=== PATIENT | female | born 1960 | race Caucasian/White ===

== ENCOUNTER → 2016-05-07 | Outpatient (CLI) | payer BC ==
[~2016-05-07] MED LIST: CALTRATE 600 +1 EACH PO; CETI1TAB2 PO; CYCL-97 PO; DESO60OI5 TP; DIAZ2TAB2 PO; DIPH25TA82 PO; FAMO20TA5 PO; FLUR100T PO; IBUP-15 PO; IBUP-30 PO; MULT-963 PO; OMEG1CAP51 PO; OMEP20CA6 PO; PANT40TA2 PO; VITA1CAP59 PO; [UNRECOGNIZED DRUG - CODE] TP
--- OUTSIDE RECORDS SUMMARY | 2016-05-07 10:24 | XMS REPORT | Continuity of Care Document ---
Author Author [facility] Organization [facility] Address Unknown Phone Unavailable Care Team Providers Care Asset Management Lead Name Role Phone Taylor Cabrales PCP [phone] Source Comments Some departments are not documenting in the electronic medical record. If you do not see the information that you expected, contact Release of Information in the Health Information Management department at [phone] for further assistance in locating additional records.[facility] Active Allergies and Adverse Reactions Allergen Noted Date Severity Reactions Comments Augmentin 05/28/2015 Medium HIVES, RASH, ITCHING Ceclor 05/28/2015 Medium CHEST TIGHTNESS, HIVES, Had to have epinephrine ITCHING shot as patient had tightness in chest. Clindamycin 05/28/2015 High HIVES, ITCHING, BLISTERS Severe reaction of itching and hives Penicillins 05/28/2015 Low SEE COMMENTS Was very small and doctor told Mom not to take ever again--she was in hospital at time. Septra 05/28/2015 Low SEE COMMENTS Took 1 pill and lips swelled and tingled. Doctor told her not to take anymore. Tetracycline 05/28/2015 Medium HIVES, RASH, ITCHING Current Medications Prescription Sig. Disp. Refills Start End Date Status Date OMEPRAZOLE (PRILOSEC PO) Take 20 mg by mouth Active daily. Jnsenmravtmxe-Izauooui-Lh Take 1 Tab by mouth Active tein tab daily. WHEAT DEXTRIN/CALCIUM Take by mouth daily. Active NO.15 (BENEFIBER PLUS Indications: 2 tsp bid CALCIUM PO) DOCOSAHEXANOIC ACID/EPA Take 2 Caps by mouth Active (FISH OIL PO) daily. vitamins, B complex tab Take 1 Tab by mouth Active daily. Hydrocortisone 2 % lotn Apply to affected area Active at bedtime daily. BACITRACIN/POLYMYXIN B Apply to affected area Active SULFATE (POLYSPORIN TP) as Needed. Indications: for blemishes hemorrhoidal prep Insert or Apply 1 Active (ANUSOL) 0.25 % rectal Suppository to rectal suppository area as directed as Needed. Indications: Sometimes one time a week clobetasol (TEMOVATE) Apply to affected area Active 0.05 % topical cream at bedtime daily. ibuprofen (MOTRIN) 200 mg Take 400 mg by mouth Active tablet every 6 hours as needed for Pain (Takes for headaches). 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 The penicillins are the only drug that she has had a suspected reaction to, for which there is a standardized, validated, commercially available skin test to be able to evaluate for possible IgE-mediated drug allergy. There are no standardized, validated tests available for any of the other antibiotics she's had reactions to. She is not a candidate for penicillin skin testing, because she reported having a rash with skin peeling in 2003 to either Augmentin or Clindamycin. Skin peeling rashes could be a sign of Brown Vel Syndrome (SJS), which can be a severe, potentially life-threatening, non-IgE mediated/non-allergic reaction to a medication, and strict medication avoidance (including avoiding skin testing) is recommended if there's any suspicion that an individual had Brown Vel Syndrome to a medication. If she is able to find any records from the ENT physician at that time that might document whether or not the skin peeling rash was due to Augmentin, that may be helpful. 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 Unless she is able to find medical records from those reactions that can help further determine which antibiotic caused the rash with skin peeling, we recommend she not take these antibiotics in the future due to possible history of SJS. - We recommend strictly avoiding Tetracycline, and Septra and other sulfa drugs, because she developed hives, chest tightness, and/or lip swelling to those medications (please see HPI for specific details on which antibiotic caused which symptoms), and those symptoms may be consistent with an IgE-mediated allergic reaction, and unfortunately we do not have any standardized, validated, commercially available skin or blood tests that we can do to determine for sure if she has an IgE-mediated allergy to any of those antibiotics. But if in the future, she gets an infection that an Infectious Disease specialist says requires treatment with either Tetracycline or a sulfa antibiotic, then it's possible that she might be a candidate for a desensitization procedure at that time to one of those drugs. - Because she had possibly Brown Vel Syndrome to Duracef, a first generation cephalosporin, our recommendation is for her to also strictly avoid Ceclor, a second generation cephalosporin, and to avoid other cephalosporins as well. - She may continue to take medications that she has not had past reactions to, such as the Avelox, Levaquin, and Zpak. We have no way to predict whether or not she get any future reactions. We asked that if she does get another reaction, to seek medical attention, write down the reaction details, and take pictures of any rash. Social History Tobacco Use Types Packs/Day Years Used Date Current Every Day Smoker Cigarettes 0.5 36 Alcohol Use Drinks/Week oz/Week Comments Yes 0 Standard 0.0 Very seldom has a glass drinks or equivalent Last Filed Vital Signs Vital Sign Reading Time Taken Blood Pressure 121/85 05/28/2015 9:08 AM CDT Pulse 76 05/28/2015 9:08 AM CDT Temperature 36.8 C (98.2 F) 05/28/2015 9:08 AM CDT Respiratory Rate - - Height 1.626 m (5' 4") 05/28/2015 9:08 AM CDT Weight 102.513 kg (226 lb) 05/28/2015 9:08 AM CDT Body Mass Index 38.77 05/28/2015 9:08 AM CDT Oxygen Saturation - - Plan of Care Health Maintenance Due Date Last Done Comments Physical (Comprehensive) 1968 Exam Pertussis Vaccine 1972 Tetanus Vaccine 1978 Cervical Cancer Screening 1982 Breast Cancer Screening 2001 Colorectal Cancer 08/21/2011 Screening Influenza Vaccine 11/12/2015 Results from Last 3 Months Not on file
[2016-05-07 10:56] LABS: ALBUMIN 4.2 G/DL (3.2-4.5); BILIRUBIN,DIRECT 0.2 MG/DL (0.0-0.3); BILIRUBIN,INDIRECT 0.4 MG/DL; BILIRUBIN,TOTAL 0.6 MG/DL (0.1-1.0); TOTAL PROTEIN 6.6 G/DL (6.4-8.2)
== END ==
LOC: LAB 10:20
PROVIDERS: ATTEND Internal Medicine Cardiovascular Disease
DX: E78.2 Mixed hyperlipidemia (principal)
CPT/HCPCS: 36415; 80061; 80076

== ENCOUNTER → 2016-07-27 | Outpatient (CLI) | payer BC ==
--- NOTE | 2016-07-27 16:55 | Diagnostic Imaging Report ---
Bilateral screening mammogram. The current study was also evaluated with a Computer Aided Detection (CAD) system. INDICATION: Screening. No current complaints stated on the questionnaire. COMPARISON: 07/10/15. FINDINGS: The breasts are composed of scattered fibroglandular densities. There are scattered benign-appearing calcifications. Allowing for technique and positional differences, no suspicious change is seen. IMPRESSION: No significant change. ACR BI-RADS Category 2: Benign findings. Result letter will be mailed to the patient. Note: At least 10% of breast cancer is not imaged by mammography. Dictated by: Dictated on workstation # [id number]
== END ==
LOC: RAD 14:48
PROVIDERS: ATTEND Family Medicine
DX: Z12.31 Encounter for screening mammogram for malignant neoplasm of breast (principal)
CPT/HCPCS: 77067

== ENCOUNTER 2016-08-10 08:35 | Outpatient (RCR) | payer BC ==
[2016-07-28] MEDS: ACETAMINOPHEN 325 MG TABLET/CAPLET (TYLENOL) PO SCH (09:40)
[2016-07-28] MEDS: diphenhydrAMINE 50 MG/ML INJ (BENADRYL) IV SCH (09:41)
[2016-07-28] MEDS: IRON SUCROSE 250 MG/NS 100 ML IVPB IV SCH ×2 (10:10)
[2016-07-28 12:21] VITALS: BP 133/70
[2016-08-03] MEDS: ACETAMINOPHEN 325 MG TABLET/CAPLET (TYLENOL) PO SCH (08:54)
[2016-08-03] MEDS: diphenhydrAMINE 50 MG/ML INJ (BENADRYL) IV SCH (08:54)
[2016-08-03] MEDS: IRON SUCROSE 250 MG/NS 100 ML IVPB IV SCH ×2 (09:15)
[2016-08-03 10:00] VITALS: BP 130/81
[~2016-08-10] VITALS: Ht 162.6 cm; Wt 98.0 kg
[2016-08-10] MEDS: diphenhydrAMINE 50 MG/ML INJ (BENADRYL) IV SCH (08:49)
[2016-08-10] MEDS: ACETAMINOPHEN 325 MG TABLET/CAPLET (TYLENOL) PO SCH (08:50)
[2016-08-10] MEDS: IRON SUCROSE 250 MG/NS 100 ML IVPB IV SCH ×2 (08:58)
[2016-08-10 09:30] VITALS: BP 128/75
== END 2016-10-26 | disposition home or self-care (01) ==
LOC: SDC 08:35
PROVIDERS: ATTEND Family Medicine
DX: D50.9 Iron deficiency anemia, unspecified (principal)
CPT/HCPCS: 96365; 96374

== ENCOUNTER → 2016-10-11 | Outpatient (CLI) | payer BC ==
[2016-10-11 11:26] LABS: BILIRUBIN,DIRECT 0.2 MG/DL (0.0-0.3); BILIRUBIN,INDIRECT 0.4 MG/DL; BILIRUBIN,TOTAL 0.6 MG/DL (0.1-1.0); TOTAL PROTEIN 6.6 GM/DL (6.4-8.2)
== END ==
LOC: LAB 10:42
PROVIDERS: ATTEND Physician Assistant
DX: E78.2 Mixed hyperlipidemia (principal)
CPT/HCPCS: 36415; 80061; 80076

== ENCOUNTER → 2017-03-25 | Outpatient (CLI) | payer BC | LOC: LAB 11:11 | PROVIDERS: ATTEND Family Medicine | DX: Z00.00 Encounter for general adult medical examination without abnormal findings (principal); R73.9 Hyperglycemia, unspecified; D64.9 Anemia, unspecified; Z79.899 Other long term (current) drug therapy ==

== ENCOUNTER → 2017-03-25 | Outpatient (CLI) | payer BC ==
[2017-03-25 11:57] LABS: ALANINE AMINOTRANSFERASE 22 U/L (0-55); ALKALINE PHOSPHATASE 103 U/L (40-136); BILIRUBIN,TOTAL 0.5 MG/DL (0.1-1.0); BUN/CREATININE RATIO 14; CALCIUM 9.1 MG/DL (8.5-10.1); CARBON DIOXIDE 26 MMOL/L (21-32); CHLORIDE 105 MMOL/L (98-107); CHOLESTEROL 179 MG/DL (< 200); CREATININE SERUM 0.79 MG/DL (0.60-1.30); GFR ESTIMATED > 60; GLUCOSE 95 MG/DL (70-105); HDL CHOLESTEROL 38 MG/DL (40-60); POTASSIUM 4.2 MMOL/L (3.6-5.0); SODIUM 141 MMOL/L (135-145); TOTAL PROTEIN 6.4 GM/DL (6.4-8.2); TRIGLYCERIDES 152 MG/DL (<150); VLDL CHOLESTEROL 30 MG/DL (5-40)
[2017-03-25 12:18] LABS: FREE T4 (FREE THYROXINE) 0.87 NG/DL (0.70-1.48)
== END ==
LOC: LAB 11:15
PROVIDERS: ATTEND Internal Medicine Gastroenterology
DX: R53.83 Other fatigue (principal); R63.5 Abnormal weight gain
CPT/HCPCS: 36415; 80053; 80061; 82607; 83036; 84439; 84443; 85652

== ENCOUNTER 2017-06-10 11:26 | Emergency (ER) | payer BC ==
[~2017-06-10] VITALS: Ht 162.6 cm; Wt 98.0 kg
[2017-06-10] MEDS ORDERED: LIDOCAINE 2% 20 ML (XYLOCAINE) VIAL ONE (12:44)
[2017-06-10] MEDS ORDERED: RX-MUPIROCIN (BACTROBAN) 2% OINT 22 GM TUBE ONE (12:45)
[2017-06-10] MEDS ORDERED: DOXY100T2 PO (13:12)
--- NOTE | 2017-06-10 13:12 | ED Integumentary General ---
General Chief Complaint: Skin/Wound Problems Stated Complaint: POSS CYST ON INNER THIGH Nursing Triage Note: c/o area on L thigh for a couple weeks. patient reports patient was able to get it to drain a fews days ago and thought it was better, but states it has come back, worse History of Present Illness Date Seen by Provider: Jun 10, 2017 Time Seen by Provider: 12:20 Initial Comments 56-year-old female reports abscess to her left upper medial thigh that has been present for approximately 2 weeks. Intermittently she has been expressing at with relief of her symptoms. Denies any other skin abscesses or history of MRSA. Reports the pain has become significantly worse in this area. She is allergic to multiple antibiotics. Timing/Duration: getting worse Severity: moderate Location: extremities (Left lower) Possible Cause: no cause identified Associated Symptoms: change in skin texture Allergies and Home Medications Allergies Coded Allergies: amoxicillin (Unverified Allergy, Unknown, RASH, 09/30/15) cefaclor (Unverified Allergy, Unknown, RASH/STOMACH UPSET, 09/30/15) clavulanic acid (Unverified Allergy, Unknown, RASH, 09/30/15) clindamycin (Unverified Allergy, Unknown, STOMACH UPSET/NAUSEA/VOMITING, ) sulfamethoxazole (Unverified Allergy, Unknown, RASH, 09/30/15) tetracycline (Unverified Allergy, Unknown, RASH/STOMACH UPSET, 09/30/15) trimethoprim (Unverified Allergy, Unknown, RASH, 09/30/15) Uncoded Allergies: PCN (Allergy, Unknown, RASH/STOMACH UPSET, 09/30/15) Home Medications Doxycycline Hyclate 100 Mg Tablet, 100 MG PO BID Prescribed by: CARLOS BOSS on 06/10/17 1312 Ibuprofen 200 Mg Tablet, 200 MG PO PRN, (Reported) [place]-3 Fatty Acids/Fish Oil 1 Each Capsule, 1 EACH PO BID, (Reported) Pantoprazole Sodium 40 Mg Tablet.dr, 40 MG PO DAILY Prescribed by: JAHAIRA BLANCAS on 09/30/15 1138 Patient Home Medication List Home Medication List Reviewed: Yes Constitutional: no symptoms reported, see HPI Skin: see HPI, lumps (Abscess to left medial thigh) Past Ohhscdu-Ogquui-Muqnzh Hx Patient Social History Alcohol Use: Denies Use Recreational Drug Use: No Recent Foreign Travel: No Contact w/Someone Who Travel: No Recent Infectious Disease Expo: No Surgeries History of Surgeries: Yes (NECK SURGERY, CYST OF BUTTOCK) Respiratory History of Respiratory Disorde: Yes (SLEEP APNEA/CPAP) Cardiovascular History of Cardiac Disorders: No Gastrointestinal History of Gastrointestinal Di: No Musculoskeletal History of Musculoskeletal Dis: Yes Endocrine History of Endocrine Disorders: No Reviewed Nursing Assessment Reviewed/Agree w Nursing PMH: Yes Physical Exam Vital Signs Vital Signs - First Documented 06/10/17 11:47 Temp 98.0 Pulse 80 Resp 18 B/P (MAP) 118/69 (85) Pulse Ox 96 Capillary Refill : Less Than 3 Seconds General Appearance: WD/WN, no apparent distress Cardiovascular: normal peripheral pulses, regular rate, rhythm Respiratory: chest non-tender, lungs clear Gastrointestinal: normal bowel sounds, non tender, soft Extremities: normal range of motion, non-tender, normal inspection, No no pedal edema, No no calf tenderness, normal capillary refill Neurologic/Psychiatric: no motor/sensory deficits, alert, normal mood/affect, oriented x 3 Skin: normal color, warm/dry Skin Problem Location: lower extremities (Left medial thigh) Skin Problem Character: abscess (Approximately 3 x 4 cm area of erythema, moderate to severe tenderness to palpation, marked induration with fluctuance at the proximal area), erythema, swelling, tenderness, warm Lymphatic: no adenopathy I&D : Site: Left upper medial thigh Blade Size: 11 I & D Procedure: betadine prep, sterile dressing applied Progress Using sterile technique the skin was prepped with Betadine, the skin was infiltrated with 8 mls of 2% lidocaine. Satisfactory local anesthesia was obtained, 11 blade was used to open the abscess, immediate return of serosanguineous to purulent drainage was expressed. Cultures were obtained. Approximately 3 ML's total was expressed. The wound was irrigated with 200 ML's of sterile normal saline. Bactroban was applied to the wound site. A bulky sterile dressing was applied. Patient tolerated the procedure well and reported relief of pain. Progress/Results/Core Measures Results/Orders Micro Results Microbiology 06/10/17 Gram Stain - Final, Resulted 06/10/17 Wound Culture - Preliminary, Resulted Strep, Beta Hemolytic Group B See Comments My Orders Orders - CARLOS BOSS Lidocaine 2% Injection 20 Ml (Xylocaine (06/10/17 12:44) Rx-Mupirocin 2% Oint (Rx-Bactroban) (06/10/17 12:45) Wound Culture (06/10/17 16:28) Medications Given in ED Vital Signs/I&O Vital Sign - Last 12Hours 06/10/17 06/10/17 11:47 13:19 Temp 98.0 98.0 Pulse 80 80 Resp 18 18 B/P (MAP) 118/69 (85) 118/69 (85) Pulse Ox 96 96 Blood Pressure Mean: 85 Progress Note : Time: 12:20 Progress Note Initial evaluation completed. Recommended I&D cultures of the abscess. Risks and benefits were discussed at length with the patient. She agreed with this treatment plan. 1300 discharge planning and return precautions discussed with the patient in detail. Due to her multiple antibiotic allergies we discussed alternatives and treatment. She believes she is able to take doxycycline. I encouraged her to follow up with Dr. Ramey in 2-3 days for the culture results and possibly adjusting her antibiotics if needed. Questions answered. Departure Impression Impression: Primary Impression: Abscess Disposition: 01 HOME, SELF-CARE Condition: Stable Departure-Patient Inst. Decision time for Depature: 13:00 Referrals: MAYLIN RAMEY MD (PCP/Family) Primary Care Physician Patient Instructions: MRSA (DC), Abscess Incision and Drainage (DC) Add. Discharge Instructions: Irrigate abscess site with peroxide 3 times a day, apply Bactroban ointment and keep covered. Follow-up with Dr. Ramey in 2-3 days if symptoms are not improving or worsen , and to obtain culture results as antibiotics may need to be adjusted. You may use Tylenol 650 mg alternating with ibuprofen 600 mg every 4 hours for pain or fever. Take antibiotic as prescribed. Return to emergency department if symptoms worsen, fever greater than 101 not relieved by Tylenol or ibuprofen, increased drainage or warmth that wound site or new problems. All discharge instructions reviewed with patient and/or family. Voiced understanding. Scripts Doxycycline Hyclate (Doxycycline Hyclate) 100 Mg Tablet 100 MG PO BID, #20 TAB 0 Refills Prov: CARLOS BOSS 06/10/17 Copy Copies To 1: MAYLIN RAMEY MD, AMY ARNP Jun 10, 2017 13:12
[2017-06-10 13:19] VITALS: BP 118/69
== END 2017-06-10 13:21 | disposition home or self-care (01) ==
LOC: EDUNIT# 11:26 → ER 11:28
DX: L02.416 Cutaneous abscess of left lower limb (principal); G47.30 Sleep apnea, unspecified; Z88.1 Allergy status to other antibiotic agents; Z88.8 Allergy status to other drugs, medicaments and biological substances; Z88.2 Allergy status to sulfonamides; Z88.0 Allergy status to penicillin
CPT/HCPCS: 10160; 87070; 87205

== ENCOUNTER 2017-06-13 14:19 | Outpatient (CLI) | payer BC ==
[~2017-06-13] VITALS: Ht 162.6 cm; Wt 98.0 kg
[~2017-06-13 14:19] MED LIST changes: +DOXY100T2 PO
[2017-06-13] MEDS ORDERED: OMEP40CA36 PO (15:07)
[2017-06-13] MEDS ORDERED: MULT1TAB69 PO (15:07)
[2017-06-13] MEDS ORDERED: OMEG-77 PO (15:07)
[2017-06-13] MEDS ORDERED: VITA1TAB17 PO (15:07)
[2017-06-13] MEDS ORDERED: LIFI1DRO OU (15:07)
[2017-06-13] MEDS ORDERED: CALC-902 PO (15:07)
== END 2017-06-13 15:11 ==
LOC: PREOP 14:19
PROVIDERS: ATTEND Surgery
DX: Z01.818 Encounter for other preprocedural examination (principal); L02.416 Cutaneous abscess of left lower limb

== ENCOUNTER 2017-06-14 13:46 | Day surgery (SDC) | payer BC ==
[~2017-06-14] VITALS: Ht 162.6 cm; Wt 98.0 kg
[~2017-06-14 13:46] MED LIST changes: +CALC-902 PO; +LIFI1DRO OU; +MULT1TAB69 PO; +OMEG-77 PO; +OMEP40CA36 PO; +VITA1TAB17 PO
--- OUTSIDE RECORDS SUMMARY | 2017-06-14 13:49 | XMS REPORT | Clinical Summary ---
Author Author [facility] Organization [facility] Address Unknown Phone Unavailable Care Team Providers Care Typing Bookkeeper Name Role Phone Porsha Powers MD Unavailable Taylor Cabrales MD PCP Source Comments Some departments are not documenting in the electronic medical record. If you do not see the information that you expected, contact Release of Information in the Health Information Management department at [phone] for further assistance in locating additional records.[facility] Allergies Active Allergy Reactions Severity Noted Date Comments Amoxicillin-Pot HIVES, RASH, ITCHING Medium 05/28/2015 Clavulanate Cefaclor CHEST TIGHTNESS, HIVES, Medium 05/28/2015 Had to have epinephrine ITCHING shot as patient had tightness in chest. Clindamycin HIVES, ITCHING, BLISTERS High 05/28/2015 Severe reaction of itching and hives Penicillins SEE COMMENTS Low 05/28/2015 Was very small and doctor told Mom not to take ever again--she was in hospital at time. Sulfamethoxazole-Trimetho SEE COMMENTS Low 05/28/2015 Took 1 pill and lips prim swelled and tingled. Doctor told her not to take anymore. Tetracycline HIVES, RASH, ITCHING Medium 05/28/2015 Current Medications Prescription Sig. Disp. Refills Start End Date Status Date OMEPRAZOLE (PRILOSEC PO) Take 20 mg by mouth Active daily. Bwtcoykdchhyx-Vjqnslwp-Uf Take 1 Tab by mouth Active tein tab daily. WHEAT DEXTRIN/CALCIUM Take by mouth daily. Active NO.15 (BENEFIBER PLUS Indications: 2 tsp bid CALCIUM PO)Indications: 2 tsp bid DOCOSAHEXANOIC ACID/EPA Take 2 Caps by mouth Active (FISH OIL PO) daily. vitamins, B complex tab Take 1 Tab by mouth Active daily. Hydrocortisone 2 % lotn Apply to affected area Active at bedtime daily. BACITRACIN/POLYMYXIN B Apply to affected area Active SULFATE (POLYSPORIN as Needed. Indications: TP)Indications: for for blemishes blemishes hemorrhoidal prep Insert or Apply 1 Active (ANUSOL) 0.25 % rectal Suppository to rectal suppositoryIndications: area as directed as Sometimes one time a week Needed. Indications: Sometimes one time a week [...] seldom has a glass drinks or equivalent Sex Assigned at Date Recorded Not on file Last Filed Vital Signs Vital Sign Reading Time Taken Blood Pressure 121/85 05/28/2015 9:08 AM CDT Pulse 76 05/28/2015 9:08 AM CDT Temperature 36.8 C (98.2 F) 05/28/2015 9:08 AM CDT Respiratory Rate - - Oxygen Saturation - - Inhaled Oxygen - - Concentration Weight 102.5 kg (226 lb) 05/28/2015 9:08 AM CDT Height 162.6 cm (5' 4") 05/28/2015 9:08 AM CDT Body Mass Index 38.79 05/28/2015 9:08 AM CDT Plan of Treatment Health Maintenance Due Date Last Done Comments HEPATITIS C SCREENING 1961 PHYSICAL (COMPREHENSIVE) 1968 EXAM PERTUSSIS VACCINE 1972 HIV SCREENING 1976 TETANUS VACCINE 1978 CERVICAL CANCER SCREENING 08/21/1991 BREAST CANCER SCREENING 2001 COLORECTAL CANCER 08/21/2011 SCREENING INFLUENZA VACCINE 12/11/2017 Results Not on filefrom Last 3 Months
--- OUTSIDE RECORDS SUMMARY | 2017-06-14 13:50 | XMS REPORT ---
Author BARBARA Cisneros Organization [employer] Address Unknown Phone Unavailable Care Team Providers Care Proof Machine Operator Supervisor Name Role Phone BARBARA OSORIO CP Unavailable Allergies No Known Allergies Problems Problem Type Condition Code Onset Dates Condition Status Assessment Encounter for immunization Z23 Active Problem Need for prophylactic vaccination and inoculation, Influenza V04.81 Active Medications No Known Medications Procedures Procedure Coding System Code Date SINGLE IMMUNIZATION ADMIN CPT-4 50516 Dec 18, 2014 FLUARIX QUAD (3 & UP)-GSK-2014 CPT-4 17411 Dec 18, 2014 Results No Known Results Immunizations Vaccine Administration Date FLUARIX QUAD (3 & UP)-GSK-2014Dec 18, 2014 Summary Purpose [employer] Submission
--- OUTSIDE RECORDS SUMMARY | 2017-06-14 13:50 | XMS REPORT | Continuity of Care Document ---
Author Author [facility] Organization [facility] Address Unknown Phone Unavailable Allergies Active Description Code Type Severity Reaction Onset Reported/Identified Relationship to Patient Clinical Status Yes amoxicillin [id number] Drug Allergy Unknown RASH 09/30/2015 Yes cefaclor [id number] Drug Allergy Unknown RASH/STOMACH UP 09/30/2015 Yes clavulanic acid [id number] Drug Allergy Unknown RASH 09/30/2015 Yes clindamycin [id number] Drug Allergy Unknown STOMACH UPSET/N 09/30/2015 Yes PCN PCN Unknown RASH/STOMACH UP 09/30/2015 Yes sulfamethoxazole [id number] Drug Allergy Unknown RASH 09/30/2015 Yes tetracycline [id number] Drug Allergy Unknown RASH/STOMACH UP 09/30/2015 Yes trimethoprim [id number] Drug Allergy Unknown RASH 09/30/2015 Medications There is no data. Problems Date Dx Coded Attending Type Code Diagnosis Diagnosed By 12/05/2012 LUCIAN ONEILL Ot 327.23 OBSTRUCTIVE SLEEP APNEA (ADULT) (PEDIATR 01/07/2013 RAJOTTE DENTAL APPLIANCE REPAIRER, BARBARA A V04.81 FLU SHOT 01/07/2013 RAJOTTE DENTAL APPLIANCE REPAIRER, BARBARA A V04.81 FLU SHOT 09/25/2015 JAHAIRA BLANCAS MD Ot D64.9 ANEMIA, UNSPECIFIED 09/25/2015 JAHAIRA BLANCAS MD Ot K21.9 GASTRO-ESOPHAGEAL REFLUX DISEASE WITHOUT 09/25/2015 JAHAIRA BLANCAS MD Ot Z01.818 ENCOUNTER FOR OTHER PREPROCEDURAL EXAMIN 09/28/2015 JAHAIRA BLANCAS MD Ot D64.9 ANEMIA, UNSPECIFIED 09/28/2015 JAHAIRA BLANCAS MD Ot K21.9 GASTRO-ESOPHAGEAL REFLUX DISEASE WITHOUT 09/28/2015 JAHAIRA BLANCAS MD Ot Z01.818 ENCOUNTER FOR OTHER PREPROCEDURAL EXAMIN 09/30/2015 JAHAIRA BLANCAS MD Ot K21.0 GASTRO-ESOPHAGEAL REFLUX DISEASE WITH ES 09/30/2015 JAHAIRA BLANCAS MD Ot K29.70 GASTRITIS, UNSPECIFIED, WITHOUT BLEEDING 09/30/2015 JAHAIRA BLANCAS MD Ot K44.9 DIAPHRAGMATIC HERNIA WITHOUT OBSTRUCTION 09/30/2015 JAHAIRA BLANCAS MD Ot K52.9 NONINFECTIVE GASTROENTERITIS AND COLITIS 09/30/2015 JAHAIRA BLANCAS MD Ot K64.1 SECOND DEGREE HEMORRHOIDS 10/01/2015 JAHAIRA BLANCAS MD Ot D64.9 ANEMIA, UNSPECIFIED 10/01/2015 JAHAIRA BLANCAS MD Ot K21.9 GASTRO-ESOPHAGEAL REFLUX DISEASE WITHOUT 10/01/2015 JAHAIRA BLANCAS MD Ot Z01.818 ENCOUNTER FOR OTHER PREPROCEDURAL EXAMIN 10/01/2015 JAHAIRA BLANCAS MD Ot K21.0 GASTRO-ESOPHAGEAL REFLUX DISEASE WITH ES 10/01/2015 JAHAIRA BLANCAS MD Ot K29.70 GASTRITIS, UNSPECIFIED, WITHOUT BLEEDING 10/01/2015 JAHAIRA BLANCAS MD Ot K44.9 DIAPHRAGMATIC HERNIA WITHOUT OBSTRUCTION 10/01/2015 JAHAIRA BLANCAS MD Ot K52.9 NONINFECTIVE GASTROENTERITIS AND COLITIS 10/01/2015 JAHAIRA BLANCAS MD Ot K64.1 SECOND DEGREE HEMORRHOIDS 11/11/2015 Ot 397.0 TRICUSPID VALVE DISEASE 11/11/2015 Ot 424.0 MITRAL VALVE DISORDER 11/11/2015 Ot 786.09 RESPIRATORY ABNORM NEC 11/11/2015 Ot 786.50 CHEST PAIN NOS 11/12/2015 DC FREEDMAN MD Ot R00.2 PALPITATIONS 11/12/2015 DC FREEDMAN MD Ot R06.02 SHORTNESS OF BREATH 11/12/2015 DC FREEDMAN MD Ot R07.9 CHEST PAIN, UNSPECIFIED 11/12/2015 DC FREEDMAN MD Ot Z86.79 PERSONAL HISTORY OF OTHER DISEASES OF 12/01/2015 DC FREEDMAN MD Ot R00.2 PALPITATIONS 12/01/2015 DC FREEDMAN MD Ot R06.02 SHORTNESS OF BREATH 12/01/2015 DC FREEDMAN MD Ot R07.9 CHEST PAIN, UNSPECIFIED 12/01/2015 DC FREEDMAN MD Ot Z86.79 PERSONAL HISTORY OF OTHER DISEASES OF 03/12/2016 Ot 397.0 TRICUSPID VALVE DISEASE 03/12/2016 Ot 424.0 MITRAL VALVE DISORDER 03/12/2016 Ot 786.09 RESPIRATORY ABNORM NEC 03/12/2016 Ot 786.50 CHEST PAIN NOS 03/12/2016 DC FREEDMAN MD Ot R00.2 PALPITATIONS 03/12/2016 DC FREEDMAN MD Ot R06.02 SHORTNESS OF BREATH 03/12/2016 DC FREEDMAN MD Ot R07.9 CHEST PAIN, UNSPECIFIED 03/12/2016 DC FREEDMAN MD Ot Z86.79 PERSONAL HISTORY OF OTHER DISEASES OF TH 03/14/2016 CLARISSA RAO DENTAL APPLIANCE REPAIRER Ot D64.9 ANEMIA, UNSPECIFIED 03/14/2016 CLARISSA RAO DENTAL APPLIANCE REPAIRER Ot E61.1 IRON DEFICIENCY 03/23/2016 CLARISSA RAO DENTAL APPLIANCE REPAIRER Ot D64.9 ANEMIA, UNSPECIFIED 03/23/2016 CLARISSA RAO DENTAL APPLIANCE REPAIRER Ot E61.1 IRON DEFICIENCY 05/09/2016 DC FREEDMAN MD Ot E78.2 MIXED HYPERLIPIDEMIA 05/13/2016 DC FREEDMAN MD Ot E78.2 MIXED HYPERLIPIDEMIA 05/18/2016 DC FREEDMAN MD Ot E78.2 MIXED HYPERLIPIDEMIA 08/02/2016 SÁNCHEZ DESAI, MAYLIN Guerra Ot D50.9 IRON DEFICIENCY ANEMIA, UNSPECIFIED 08/03/2016 MAYLIN POZO MD Ot D50.9 IRON DEFICIENCY ANEMIA, UNSPECIFIED 08/03/2016 MAYLIN POZO MD Ot D50.9 IRON DEFICIENCY ANEMIA, UNSPECIFIED 08/10/2016 SÁNCHEZ DESAI, MAYLIN Guerra Ot D50.9 IRON DEFICIENCY ANEMIA, UNSPECIFIED 08/10/2016 MAYLIN POZO MD Ot Z12.31 ENCNTR SCREEN MAMMOGRAM FOR MALIGNANT NE 08/24/2016 SÁNCHEZ DESAI, MAYLIN Guerra Ot D50.9 IRON DEFICIENCY ANEMIA, UNSPECIFIED 10/26/2016 MAYLIN POZO MD Ot D50.9 IRON DEFICIENCY ANEMIA, UNSPECIFIED 11/01/2016 MAYLIN POZO MD Ot D50.9 IRON DEFICIENCY ANEMIA, UNSPECIFIED 11/02/2016 JOSS CHIANG Ot E78.2 MIXED HYPERLIPIDEMIA 03/27/2017 EVAN MENEZES MD Ot R53.83 OTHER FATIGUE 03/27/2017 EVAN MENEZES MD Ot R63.5 ABNORMAL WEIGHT GAIN 04/05/2017 EVAN MENEZES MD Ot R53.83 OTHER FATIGUE 04/05/2017 EVAN MENEZES MD, Ot R63.5 ABNORMAL WEIGHT GAIN Procedures There is no data. Results Test Result Range Complete blood count (CBC) with automated white blood cell (WBC) differential - 03/12/16 10:25 Blood leukocytes automated count (number/volume) 7.6 10*3/uL 4.3-11.0 Blood erythrocytes automated count (number/volume) 4.09 10*6/uL 4.35-5.85 Venous blood hemoglobin measurement (mass/volume) 12.2 g/dL 11.5-16.0 Blood hematocrit (volume fraction) 38 % 35-52 Automated erythrocyte mean corpuscular volume 92 [foz_us] 80-99 Automated erythrocyte mean corpuscular hemoglobin (mass per erythrocyte) 30 pg 25-34 Automated erythrocyte mean corpuscular hemoglobin concentration measurement ( mass/volume) 32 g/dL 32-36 Automated erythrocyte distribution width ratio 13.6 % 10.0-14.5 Automated blood platelet count (count/volume) 306 10*3/uL 130-400 Automated blood platelet mean volume measurement 8.5 [foz_us] 7.4-10.4 Automated blood neutrophils/100 leukocytes 73 % 42-75 Automated blood lymphocytes/100 leukocytes 19 % 12-44 Blood monocytes/100 leukocytes 5 % 0-12 Automated blood eosinophils/100 leukocytes 3 % 0-10 Automated blood basophils/100 leukocytes 0 % 0-10 Blood neutrophils automated count (number/volume) 5.6 10*3 1.8-7.8 Blood lymphocytes automated count (number/volume) 1.4 10*3 1.0-4.0 Blood monocytes automated count (number/volume) 0.4 10*3 0.0-1.0 Automated eosinophil count 0.2 10*3/uL 0.0-0.3 Automated blood basophil count (count/volume) 0.0 10*3/uL 0.0-0.1 Erythrocyte sedimentation rate by westergren method - 03/12/16 10:25 Erythrocyte sedimentation rate by westergren method 22 mm 0-30 Comprehensive metabolic panel - 03/12/16 10:25 Serum or plasma sodium measurement (moles/volume) 142 mmol/L 135-145 Serum or plasma potassium measurement (moles/volume) 4.2 mmol/L 3.6-5.0 Serum or plasma chloride measurement (moles/volume) 108 mmol/L 98-107 Carbon dioxide 24 mmol/L 21-32 Serum or plasma anion gap determination (moles/volume) 10 mmol/L 5-14 Serum or plasma urea nitrogen measurement (mass/volume) 13 mg/dL 7-18 Serum or plasma creatinine measurement (mass/volume) 0.76 mg/dL 0.60-1.30 Serum or plasma urea nitrogen/creatinine mass ratio 17 NRG Serum or plasma creatinine measurement with calculation of estimated glomerular filtration rate > NRG Serum or plasma glucose measurement (mass/volume) 104 mg/dL 70-105 Serum or plasma calcium measurement (mass/volume) 8.9 mg/dL 8.5-10.1 Serum or plasma total bilirubin measurement (mass/volume) 0.4 mg/dL 0.1-1.0 Serum or plasma alkaline phosphatase measurement (enzymatic activity/volume) 89 U/L 40-136 Serum or plasma aspartate aminotransferase measurement (enzymatic activity/ volume) 18 U/L 5-34 Serum or plasma alanine aminotransferase measurement (enzymatic activity/volume ) 19 U/L 0-55 Serum or plasma protein measurement (mass/volume) 6.1 g/dL 6.4-8.2 Serum or plasma albumin measurement (mass/volume) 3.9 g/dL 3.2-4.5 Serum or plasma C reactive protein measurement (mass/volume) - 03/12/16 10:25 Serum or plasma C reactive protein measurement (mass/volume) 1.21 mg /dL 0.00-0.50 IRON TEST - 03/12/16 10:25 Serum or plasma iron measurement (mass/volume) 57 % 35- 180 Liver function panel (serum or plasma alk phos, alb, total and direct bili, total protein, ALT, AST) - 05/07/16 10:28 Serum or plasma total bilirubin measurement (mass/volume) 0.6 mg/dL 0.1-1.0 Serum or plasma alkaline phosphatase measurement (enzymatic activity/volume) 96 U/L 40-136 Serum or plasma aspartate aminotransferase measurement (enzymatic activity/ volume) 21 U/L 5-34 Serum or plasma alanine aminotransferase measurement (enzymatic activity/volume ) 18 U/L 0-55 Serum or plasma protein measurement (mass/volume) 6.6 g/dL 6.4-8.2 Serum or plasma albumin measurement (mass/volume) 4.2 g/dL 3.2-4.5 Bilirubin direct 0.2 mg/dL 0.0-0.3 Serum or plasma indirect bilirubin measurement (mass/volume) 0.4 mg/ dL [facility] Lipid 1996 panel - 05/07/16 10:28 Serum or plasma triglyceride measurement (mass/volume) 145 mg/dL <150 Serum or plasma cholesterol measurement (mass/volume) 183 mg/dL < 200 Serum or plasma cholesterol in HDL measurement (mass/volume) 38 mg/ dL 40-60 Cholesterol in LDL [mass/volume] in serum or plasma by direct assay 125 mg/dL 1-129 Serum or plasma cholesterol in VLDL measurement (mass/volume) 29 mg/ dL 5-40 Erythrocyte sedimentation rate by westergren method - 03/25/17 11:30 Erythrocyte sedimentation rate by westergren method 21 mm 0-30 Comprehensive metabolic panel - 03/25/17 11:30 Serum or plasma sodium measurement (moles/volume) 141 mmol/L 135-145 Serum or plasma potassium measurement (moles/volume) 4.2 mmol/L 3.6-5.0 Serum or plasma chloride measurement (moles/volume) 105 mmol/L 98-107 Carbon dioxide 26 mmol/L 21-32 Serum or plasma anion gap determination (moles/volume) 10 mmol/L 5-14 Serum or plasma urea nitrogen measurement (mass/volume) 11 mg/dL 7-18 Serum or plasma creatinine measurement (mass/volume) 0.79 mg/dL 0.60-1.30 Serum or plasma urea nitrogen/creatinine mass ratio 14 NR Serum or plasma creatinine measurement with calculation of estimated glomerular filtration rate > [facility] Serum or plasma glucose measurement (mass/volume) 95 mg/dL 70-105 Serum or plasma calcium measurement (mass/volume) 9.1 mg/dL 8.5-10.1 Serum or plasma total bilirubin measurement (mass/volume) 0.5 mg/dL 0.1-1.0 Serum or plasma alkaline phosphatase measurement (enzymatic activity/volume) 103 U/L 40-136 Serum or plasma aspartate aminotransferase measurement (enzymatic activity/ volume) 21 U/L 5-34 Serum or plasma alanine aminotransferase measurement (enzymatic activity/volume ) 22 U/L 0-55 Serum or plasma protein measurement (mass/volume) 6.4 g/dL 6.4-8.2 Serum or plasma albumin measurement (mass/volume) 4.0 g/dL 3.2-4.5 Lipid 1996 panel - 03/25/17 11:30 Serum or plasma triglyceride measurement (mass/volume) 152 mg/dL <150 Serum or plasma cholesterol measurement (mass/volume) 179 mg/dL < 200 Serum or plasma cholesterol in HDL measurement (mass/volume) 38 mg/ dL 40-60 Cholesterol in LDL [mass/volume] in serum or plasma by direct assay 118 mg/dL 1-129 Serum or plasma cholesterol in VLDL measurement (mass/volume) 30 mg/ dL 5-40 THYROID STIMULATING HORMONE - 03/25/17 11:30 THYROID STIMULATING HORMONE 1.29 u[iU]/mL 0.35-4.94 Serum or plasma thyroxine (T4) free measurement (mass/volume) - 03/25/17 11:30 Serum or plasma thyroxine (T4) free measurement (mass/volume) 0.87 ng/dL 0.70-1.48 Hemoglobin A1c - 03/25/17 11:30 Hemoglobin A1c 6.2 % 4.5-6.2 Cyanocobalamin measurement - 03/25/17 11:30 Vitamin B12 363 pg/mL 200-1000 Gram stain microscopy - 06/10/17 12:50 GRAM STAIN RESULT FEW GRAM POSITIVE COCCI NRG Bacteria identification in wound by culture - 06/10/17 12:50 Bacteria identification in wound by culture SEE COMMEN NRG QUANTITY OF GROWTH . NRG Encounters ACCT No. Visit Date/Time Discharge Status Pt. Type Provider Facility Loc./Unit Complaint [id number] 03/25/2017 11:15:00 03/25/2017 23:59:59 CLS Outpatient EVAN MENEZES MD [facility] LAB FATIGUE, WT GAIN [id number] 03/25/2017 11:11:00 03/25/2017 23:59:59 CLS Outpatient MAYLIN POZO MD [facility] LAB ANEMIA [id number] 10/27/2016 00:10:00 10/27/2016 23:59:59 CLS Preadmit MAYLIN POZO MD [facility] SDC ANEMIA [id number] 08/10/2016 08:35:00 10/26/2016 00:01:00 DIS Outpatient MAYLIN POZO MD [facility] SD ANEMIA [id number] 10/11/2016 10:42:00 10/11/2016 23:59:59 CLS Outpatient JOSS CHIANG [facility] LAB E78.2 [id number] 07/27/2016 14:48:00 07/27/2016 23:59:59 CLS Outpatient MAYLIN POZO MD [facility] RAD SCREENING Z12.31 [id number] 05/07/2016 10:20:00 05/07/2016 23:59:59 CLS Outpatient DC FREEDMAN MD [facility] LAB HYPERLIPIDEMIA [id number] 03/12/2016 10:10:00 03/12/2016 23:59:59 CLS Outpatient CLARISSA RAO APRN [facility] LAB ANEMIA, LOW IRON, INFLAMMATION [id number] 11/11/2015 07:27:00 11/11/2015 23:59:59 CLS Outpatient DC FREEDMAN MD [facility] CARD CHEST PAIN SYNDROME, HEART PALPITATIONS [id number] 09/30/2015 08:35:00 09/30/2015 13:38:00 DIS Outpatient JAHAIRA BLANCAS MD [facility] ANEMIA,REFLEX [id number] 09/25/2015 05:38:00 09/25/2015 09:38:00 DIS Outpatient JAHAIRA BLANCAS MD [facility] PREOP ANEMIA/REFLEX [id number] 12/04/2012 20:05:00 12/05/2012 05:50:00 DIS Outpatient LUCIAN ONEILL [facility] SLEEP SNORING [id number] 06/11/2017 10:48:00 Document Registration [id number] 06/19/2012 10:24:00 Document Registration [id number] 12/27/2013 14:43:00 12/27/2013 23:59:59 CLS Outpatient BARBARA OSORIO APRN [id number] 01/07/2013 10:02:00 01/07/2013 23:59:59 CLS Outpatient BARBARA OSORIO APRN [id number] 11/24/2016 10:20:39 11/24/2016 23:59:59 CLS Outpatient
[2017-06-14 14:10] VITALS: BP 114/77
[2017-06-14] MEDS ORDERED: LACTATED RINGERS 1,000 ML IV PRN (14:22)
[2017-06-14] MEDS ORDERED: BUP/EPI 0.5% 1:200,000 (SENSORCAINE) 30 ML VIAL ONE (14:29)
[2017-06-14] MEDS ORDERED: ACETAMINOPHEN 325 MG TABLET/CAPLET (TYLENOL) PO PRN (14:30)
[2017-06-14] MEDS ORDERED: HYDROcodone/APAP 5 MG/325 MG (LORTAB) TAB PO ONE (14:30)
[2017-06-14] MEDS ORDERED: SCOPOLAMINE 1.5 MG (TRANSDERM-SCOP) PATCH TD ONE (14:30)
[2017-06-14] MEDS ORDERED: morphine INJ 10 MG/ML 1ML (SYR OR VIAL) IVP PRN ×2 (14:30→15:45)
[2017-06-14] MEDS ORDERED: ONDANSETRON 4 MG/2 ML (SDV) Z0FRAN IVP ONE (14:30)
[2017-06-14] MEDS ORDERED: LEVOFLOXACIN 500 MG/100 ML IV 100 ML IV ONE (14:30)
[2017-06-14] MEDS ORDERED: FAMOTIDINE 20MG/2ML IV (PEPCID) IVP ONE (14:30)
[2017-06-14] MEDS ORDERED: ONDANSETRON 4 MG/2 ML (SDV) Z0FRAN IVP PRN ×2 (14:30→15:45)
--- NOTE | 2017-06-14 14:30 | Progress Note-Pre Operative ---
Pre-Operative Progress Note H&P Reviewed The H&P was reviewed, patient examined and no changes noted. Date Seen by Provider: Jun 14, 2017 Time Seen by Provider: 14:25 Date H&P Reviewed: Jun 14, 2017 Time H&P Reviewed: 14:25 Pre-Operative Diagnosis: left inner thigh abscess JAHAIRA BLANCAS MD Jun 14, 2017 2:30 pm
[2017-06-14] MEDS ORDERED: MIDAZOLAM 2 MG/2 ML (VERSED) VIAL ONE (14:47)
[2017-06-14] MEDS ORDERED: proPOfol 200 MG/20 ML (DIPRIVAN) VIAL IV ONE (14:47)
[2017-06-14] MEDS ORDERED: fentaNYL INJECTION 100 MCG/2 ML AMP ONE (14:47)
[2017-06-14] MEDS ORDERED: LIDOCAINE PF 2% 5 ML (XYLOCAINE) VIAL ONE (14:47)
[2017-06-14] MEDS ORDERED: SEVOFLURANE (ULTANE) 15 ML INHAL SOLN ONE (15:26)
--- NOTE | 2017-06-14 15:39 | Progress Note-Post Operative ---
Post-Operative Progess Note Surgeon (s)/Prefabricated Houses Trimmer (s) Surgeon JAHAIRA BLANCAS MD Prefabricated Houses Trimmer: none Pre-Operative Diagnosis left inner thigh abscess Post-Operative Diagnosis left inner thigh sebaceous cyst(3cm) Procedure & Operative Findings Date of Procedure 06/14/17 Procedure Performed/Findings excision left medical thigh subcutaneous cyst(3cm). Anesthesia Type general LMA Estimated Blood Loss Estimated blood loss (mL): minimal Specimens/Packing Specimens Removed left thigh cyst. JAHAIRA BLANCAS MD Jun 14, 2017 3:39 pm
--- NOTE | 2017-06-14 15:41 | Discharge Inst-Surgical ---
D/C Lap Instructions-MAGALIS Follow Up Appt in 2 weeks Activity as tolerated Regular Diet Symptoms to Report: Fever over 101 degree F, Nausea/Vomiting Infection Signs and Symptoms to report: Increased redness, Foul odor of wound, Increased drainage Bathing instructions: May shower Operative Area Clean/Dry; Keep incision clean/dry If any problems/questions: Contact your physician or go to Emergency Room JAHAIRA BLANCAS MD Jun 14, 2017 3:41 pm
--- NOTE | 2017-06-14 15:44 | Anesthesia-General Post-Op ---
General Patient Condition Mental Status/LOC: Same as Preop Cardiovascular: Satisfactory Nausea/Vomiting: Absent Respiratory: Satisfactory Pain: Controlled Complications: Absent Post Op Complications Complications None Follow Up Care/Instructions Patient Instructions None needed. Anesthesia/Patient Condition Patient Condition Patient is doing well, no complaints, stable vital signs, no apparent adverse anesthesia problems. No complications reported per nursing. CHRISTIANO WHITLOCK CRNA Jun 14, 2017 15:44
[2017-06-14] MEDS ORDERED: MEPERIDINE (DEMEROL) INJ 50 MG/ML IVP PRN (15:45)
[2017-06-14 16:25] VITALS: BP 114/77
[2017-06-14 16:55] VITALS: BP 119/74
[2017-06-14 17:25] VITALS: BP 109/77
[2017-06-14 17:35] VITALS: BP 109/77
--- NOTE | 2017-06-14 20:30 | OPERATIVE REPORT ---
DATE OF SERVICE: 06/14/2017 ATTENDING PRIMARY CARE PHYSICIAN: Mirian Ramey MD PREOPERATIVE DIAGNOSIS: Symptomatic left inner thigh lesion. POSTOPERATIVE DIAGNOSIS: Symptomatic left inner thigh sebaceous cyst. PROCEDURE: Excision of subcutaneous sebaceous cyst approximately 3 cm in size. SURGEON: Jahaira Blancas MD SERVICE TECHNICIAN COPIER: Jevon Campos APRN ANESTHESIA: General laryngeal mask airway. ESTIMATED BLOOD LOSS: Minimal. FINDINGS: Sebaceous cyst approximately 3 cm in size with no active or surrounding inflammation or infection. DISPOSITION: The patient tolerated the procedure well. INDICATIONS: The patient is a 56-year-old female who reports that she has had recurring issues with a lesion at the left upper medial thigh. She reports that this has been around for some time; however, she has done simple I and D's in the past on her own and they would resolve. She reports in the past several weeks that she has had re-irritation of the area, which grew larger in size and became painful with surrounding redness, erythema. She presented to the Emergency Department where incision and drainage was performed as well as antibiotics. Since that time, the erythema, redness and inflammation have decreased; however, a palpable lesion is still present. The patient has opted for a general anesthesia for proper exploration as well as cyst excision if one is identified. DESCRIPTION OF PROCEDURE: The patient was brought to the operating room, laid supine on the table. After adequate IV pain and sedative medications, general laryngeal mask airway intubation, the thigh and perineum were prepped and draped in standard surgical fashion. Marcaine 0.5% with epinephrine was then used to anesthetize the overlying skin along the lesion. A transverse skin incision was then made using a 15 blade. A cyst cavity was identified and completely dissected out until a clean subcutaneous fat was identified using 15 blade. Good hemostasis was achieved using electrocautery and the wound edges were clean with no signs of infection and reapproximated using 4-0 nylon interrupted sutures. The wound was then cleaned and covered with dry sterile dressing. The patient tolerated the procedure well. We will start IV and oral pain medication as well as a clear liquid diet. When she is tolerating clears, has good pain control with oral pain medications and ambulating well, we will discharge her home. We will have her follow up in approximately 2 weeks to reevaluate the wound as well as to remove the sutures as well. Job ID: [id number] DocumentID: [id number] Dictated Date: 06/14/2017 15:45:17 Carbon Paste Mixer Operator Date: 06/14/2017 20:29:46 Dictated By: JAHAIRA BLANCAS MD MTDD
== END 2017-06-14 17:35 | disposition home or self-care (01) ==
LOC: SDC 13:46
PROVIDERS: ATTEND Surgery
DX: L72.3 Sebaceous cyst (principal); Z11.2 Encounter for screening for other bacterial diseases; K21.9 Gastro-esophageal reflux disease without esophagitis; K59.00 Constipation, unspecified; Z88.2 Allergy status to sulfonamides; Z88.0 Allergy status to penicillin; Z88.1 Allergy status to other antibiotic agents; Z88.5 Allergy status to narcotic agent; F17.210 Nicotine dependence, cigarettes, uncomplicated; G47.33 Obstructive sleep apnea (adult) (pediatric)
CPT/HCPCS: 87081

== ENCOUNTER → 2017-08-01 | Outpatient (CLI) | payer BC ==
--- NOTE | 2017-08-01 19:05 | Diagnostic Imaging Report ---
INDICATION: Routine screening. Comparison is made with prior mammogram from 07/27/2016 and 07/10/2015. 2-D and 3-D bilateral screening mammography was performed with CAD. The current study was also evaluated with a Computer Aided Detection (CAD) system. FINDINGS: Scattered fibronodular densities are identified bilaterally. No mass or malignant-appearing microcalcifications are seen. The axillae are unremarkable. IMPRESSION: No mammographic features suspicious for malignancy are identified. ACR BI-RADS Category 1: Negative. Result letter will be mailed to the patient. Note: At least 10% of breast cancer is not imaged by mammography. Dictated by: Dictated on workstation # [id number]
== END ==
LOC: RAD 08:00
PROVIDERS: ATTEND Nurse Practitioner Family
DX: Z12.31 Encounter for screening mammogram for malignant neoplasm of breast (principal)
CPT/HCPCS: 77067

== ENCOUNTER → 2017-08-24 | Outpatient (REF) ==
--- NOTE | 2017-08-24 15:10 | Diagnostic Imaging Report ---
INDICATION: Injury to left foot. EXAMINATION: AP, oblique and lateral views of the left foot were obtained. FINDINGS: No fracture or acute bony abnormality is seen. Joint spaces are unremarkable. IMPRESSION: Negative left foot. Dictated by: Dictated on workstation # [id number]
== END | disposition home or self-care (01) ==
LOC: OCC 14:07
PROVIDERS: ATTEND Nurse Practitioner Family
CPT/HCPCS: 73630

== ENCOUNTER → 2017-10-21 | Outpatient (CLI) | payer BC ==
[2017-10-21 11:36] LABS: ALANINE AMINOTRANSFERASE 29 U/L (0-55); ALBUMIN 4.3 GM/DL (3.2-4.5); ALKALINE PHOSPHATASE 108 U/L (40-136); BILIRUBIN,TOTAL 0.7 MG/DL (0.1-1.0); BUN/CREATININE RATIO 16; CALCIUM 9.5 MG/DL (8.5-10.1); CARBON DIOXIDE 26 MMOL/L (21-32); CHLORIDE 105 MMOL/L (98-107); CHOLESTEROL 193 MG/DL (< 200); CREATININE SERUM 0.82 MG/DL (0.60-1.30); GFR ESTIMATED > 60; GLUCOSE 101 MG/DL (70-105); HDL CHOLESTEROL 42 MG/DL (40-60); POTASSIUM 4.2 MMOL/L (3.6-5.0); SODIUM 140 MMOL/L (135-145); TOTAL PROTEIN 6.8 GM/DL (6.4-8.2); TRIGLYCERIDES 158 MG/DL (<150); VLDL CHOLESTEROL 32 MG/DL (5-40)
== END ==
LOC: LAB 10:57
PROVIDERS: ATTEND Internal Medicine Cardiovascular Disease
DX: K21.9 Gastro-esophageal reflux disease without esophagitis (principal); R00.2 Palpitations; E78.2 Mixed hyperlipidemia; R06.02 Shortness of breath; Z86.79 Personal history of other diseases of the circulatory system
CPT/HCPCS: 36415; 80053; 80061

== ENCOUNTER 2017-11-18 11:00 | Day surgery (SDC) | payer BC ==
[~2017-11-18] VITALS: Ht 162.6 cm; Wt 99.8 kg
--- OUTSIDE RECORDS SUMMARY | 2017-11-18 11:05 | XMS REPORT | Continuity of Care Document ---
Author Author [facility] Organization [facility] Address Unknown Phone Unavailable Care Team Providers Care Admitted Attorneys Name Role Phone NAIMA SERRATO MD PP Insurance Providers Payer Name Policy Number Subscriber Name Relationship [facility] [id number] Prisca Delaney Jose 02 Advance Directives Directive Response Recorded Date Advance Directives N 06/19/12 1:08pm Organ Donor Y 06/19/12 1:08pm Problems No Known Problems or Medical conditions. Allergies, Adverse Reactions, Alerts No known allergies Medications Medication Dose Units Route Sig Qty Days Desonide 60 Gm TP PRN Dapsone (Aczone) 0 TP BID Omeprazole (Prilosec) 20 Mg PO DAILY Diphenhydramine HCl (Diphenhydramine 25 Mg) 1 Each PO HS PRN Cetirizine HCl (Zyrtec-D Tablet) 1 Each PO Q12HR Ibuprofen (Ibuprofen M) 200 Mg PO PRN Ibuprofen (Advil) 200 Mg PO PRN Diazepam (Diazepam 2 Mg) 1 Each PO PRN Cyclobenzaprine HCl (Flexeril) 1 Tab PO TID PRN Flurbiprofen (Ansaid) 100 Mg PO DAILY Calcium Carbonate/Vitamin D3 (Caltrate 600 + D Chewable Tab) 1 Each PO Vitamin B Complex (B Complex) 1 Cap PO Multivitamin (Multi-Vitamin Daily) 1 Each PO [place]-3 Fatty Acids/Fish Oil (Fish Oil 1,000 Mg Softgel) 1 Each PO BID Famotidine (Pepcid) 1 Each PO DAILY Response Recorded Date/Time Status not known Unknown Results No Known Relevant Diagnostic Tests, Laboratory Data and/or Discharge Summary.
--- OUTSIDE RECORDS SUMMARY | 2017-11-18 11:05 | XMS REPORT | Clinical Summary ---
Author Author [facility] Organization [facility] Address Unknown Phone Unavailable Care Team Providers Care Automotive Product Specialist Name Role Phone Porsha Powers MD Unavailable Taylor Cabrales MD PCP Source Comments Some departments are not documenting in the electronic medical record. If you do not see the information that you expected, contact Release of Information in the Health Information Management department at [phone] for further assistance in locating additional records.[facility] Allergies Active Allergy Reactions Severity Noted [...] Take 20 mg by mouth Active daily. Cliogxfrrjmbm-Vlnumaum-Ex Take 1 Tab by mouth Active tein [...] CANCER SCREENING 2001 COLORECTAL CANCER 08/21/2011 SCREENING SHINGLES RECOMBINANT 08/21/2011 VACCINE (1 of 2) INFLUENZA VACCINE 12/11/2017 Results Not on filefrom Last 3 Months
--- OUTSIDE RECORDS SUMMARY | 2017-11-18 11:06 | XMS REPORT | Continuity of Care Document ---
Author Author [facility] [place] Address Unknown Phone Unavailable Allergies Active Description Code Type Severity Reaction Onset Reported/Identified Relationship to Patient Clinical Status Yes amoxicillin [id number] Drug Allergy Unknown RASH 09/30/2015 Yes cefaclor [id number] Drug Allergy Unknown RASH/STOMACH UP 09/30/2015 Yes clavulanic acid [id number] Drug Allergy Unknown RASH 09/30/2015 Yes clindamycin [id number] Drug Allergy Unknown STOMACH UPSET/N 09/30/2015 Yes PCN PCN Unknown RASH/STOMACH UP 09/30/2015 Yes sulfamethoxazole [id number] Drug Allergy Unknown RASH 09/30/2015 Yes tetracycline [id number] Drug Allergy Unknown RASH/STOMACH UP 09/30/2015 Yes trimethoprim [id number] Drug Allergy Unknown RASH 09/30/2015 Medications There is no data. Problems Date Dx Coded Attending Type Code Diagnosis Diagnosed By 12/05/2012 LUCIAN ONEILL Ot 327.23 OBSTRUCTIVE SLEEP APNEA (ADULT) (PEDIATR 01/07/2013 RAJOTTE RACE CAR MECHANIC, BARBARA A V04.81 FLU SHOT 01/07/2013 RAJOTTE RACE CAR MECHANIC, BARBARA A V04.81 FLU SHOT 09/25/2015 JAHAIRA [...] OTHER DISEASES OF TH 03/14/2016 CLARISSA RAO RACE CAR MECHANIC Ot D64.9 ANEMIA, UNSPECIFIED 03/14/2016 CLARISSA RAO RACE CAR MECHANIC Ot E61.1 IRON DEFICIENCY 03/23/2016 CLARISSA RAO RACE CAR MECHANIC Ot D64.9 ANEMIA, UNSPECIFIED 03/23/2016 CLARISSA RAO RACE CAR MECHANIC Ot E61.1 IRON DEFICIENCY 05/09/2016 DC FREEDMAN [...] R53.83 OTHER FATIGUE 03/27/2017 EVAN MENEZES MD A Ot R63.5 ABNORMAL WEIGHT GAIN 04/05/2017 EVAN MENEZES MD Ot R53.83 OTHER FATIGUE 04/05/2017 CLIF DESAI, EVAN Guerra Ot R63.5 ABNORMAL WEIGHT GAIN 06/10/2017 GERA, CARLOS SENIOR PRODUCTION MANAGER Ot G47.30 SLEEP APNEA, UNSPECIFIED 06/10/2017 GERA, CARLOS SENIOR PRODUCTION MANAGER Ot L02.416 CUTANEOUS ABSCESS OF LEFT LOWER LIMB 06/10/2017 GERA, CARLOS SENIOR PRODUCTION MANAGER Ot Z88.0 ALLERGY STATUS TO PENICILLIN 06/10/2017 GERA, CARLOS SENIOR PRODUCTION MANAGER Ot Z88.1 ALLERGY STATUS TO OTHER ANTIBIOTIC AGENT 06/10/2017 GERA, CARLOS SENIOR PRODUCTION MANAGER Ot Z88.2 ALLERGY STATUS TO SULFONAMIDES STATUS 06/10/2017 GERA, CARLOS SENIOR PRODUCTION MANAGER Ot Z88.8 ALLERGY STATUS TO OTH DRUG/MEDS/BIOL SUB 06/12/2017 GERA, CARLOS SENIOR PRODUCTION MANAGER Ot G47.30 SLEEP APNEA, UNSPECIFIED 06/12/2017 GERA, CARLOS SENIOR PRODUCTION MANAGER Ot L02.416 CUTANEOUS ABSCESS OF LEFT LOWER LIMB 06/12/2017 GERA, CARLOS SENIOR PRODUCTION MANAGER Ot Z88.0 ALLERGY STATUS TO PENICILLIN 06/12/2017 GERA, CARLOS SENIOR PRODUCTION MANAGER Ot Z88.1 ALLERGY STATUS TO OTHER ANTIBIOTIC AGENT 06/12/2017 GERA, CARLOS SENIOR PRODUCTION MANAGER Ot Z88.2 ALLERGY STATUS TO SULFONAMIDES STATUS 06/12/2017 GERA, CARLOS SENIOR PRODUCTION MANAGER Ot Z88.8 ALLERGY STATUS TO OTH DRUG/MEDS/BIOL SUB 06/14/2017 JAHAIRA BLANCAS MD Ot F17.210 NICOTINE DEPENDENCE, CIGARETTES, UNCOMPL 06/14/2017 JAHAIRA BLANCAS MD Ot G47.33 OBSTRUCTIVE SLEEP APNEA (ADULT) (PEDIATR 06/14/2017 JAHAIRA BLANCAS MD Ot K21.9 GASTRO-ESOPHAGEAL REFLUX DISEASE WITHOUT 06/14/2017 JAHAIRA BLANCAS MD, Ot K59.00 CONSTIPATION, UNSPECIFIED 06/14/2017 JAHAIRA BLANCAS MD Ot L72.3 SEBACEOUS CYST 06/14/2017 JAHAIRA BLANCAS MD Ot Z11.2 ENCOUNTER FOR SCREENING FOR OTHER BACTER 06/14/2017 JAHAIRA BLANCAS MD Ot Z88.0 ALLERGY STATUS TO PENICILLIN 06/14/2017 JAHAIRA BLANCAS MD Ot Z88.1 ALLERGY STATUS TO OTHER ANTIBIOTIC AGENT 06/14/2017 JAHAIRA BLANCAS MD Ot Z88.2 ALLERGY STATUS TO SULFONAMIDES STATUS 06/14/2017 JAHAIRA BLANCAS MD, Ot Z88.5 ALLERGY STATUS TO NARCOTIC AGENT STATUS 06/14/2017 JAHAIRA BLANCAS MD, Ot L02.416 CUTANEOUS ABSCESS OF LEFT LOWER LIMB 06/14/2017 JAHAIRA BLANCAS MD, Ot Z01.818 ENCOUNTER FOR OTHER PREPROCEDURAL EXAMIN 06/15/2017 JAHAIRA BLANCAS MD, Ot F17.210 NICOTINE DEPENDENCE, CIGARETTES, UNCOMPL 06/15/2017 JAHAIRA BLANCAS MD, Ot G47.33 OBSTRUCTIVE SLEEP APNEA (ADULT) (PEDIATR 06/15/2017 JAHAIRA BLANCAS MD, Ot K21.9 GASTRO-ESOPHAGEAL REFLUX DISEASE WITHOUT 06/15/2017 JAHAIRA BLANCAS MD, Ot K59.00 CONSTIPATION, UNSPECIFIED 06/15/2017 JAHAIRA BLANCAS MD, Ot L72.3 SEBACEOUS CYST 06/15/2017 JAHAIRA BLANCAS MD, Ot Z11.2 ENCOUNTER FOR SCREENING FOR OTHER BACTER 06/15/2017 JAHAIRA BLANCAS MD, Ot Z88.0 ALLERGY STATUS TO PENICILLIN 06/15/2017 JAHAIRA BLANCAS MD, Ot Z88.1 ALLERGY STATUS TO OTHER ANTIBIOTIC AGENT 06/15/2017 JAHAIRA BLANCAS MD, Ot Z88.2 ALLERGY STATUS TO SULFONAMIDES STATUS 06/15/2017 JAHAIRA BLANCAS MD, Ot Z88.5 ALLERGY STATUS TO NARCOTIC AGENT STATUS 08/02/2017 FLORECITA INTERIANO Ot Z12.31 ENCNTR SCREEN MAMMOGRAM FOR MALIGNANT NE 08/02/2017 FLORECITA INTERIANO Ot Z12.31 ENCNTR SCREEN MAMMOGRAM FOR MALIGNANT NE 08/14/2017 FLORECITA INTERIANO Ot Z12.31 ENCNTR SCREEN MAMMOGRAM FOR MALIGNANT NE Procedures There is no data. Results Test [...] indirect bilirubin measurement (mass/volume) 0.4 mg/ dL [facility] Lipid 1996 panel - 05/07/16 10:28 [...] or plasma urea nitrogen/creatinine mass ratio 14 NRG Serum or plasma creatinine measurement with calculation of estimated glomerular filtration rate > NRG Serum or plasma glucose measurement (mass/volume) 95 [...] COMMEN NRG QUANTITY OF GROWTH . NRG Methicillin resistant Staphylococcus aureus (MRSA) screening culture - 14:05 Methicillin resistant Staphylococcus aureus (MRSA) screening culture NEG NRG Encounters ACCT No. Visit Date/Time Discharge Status Pt. Type Provider Facility Loc./Unit Complaint [id number] 12/27/2013 14:43:00 12/27/2013 23:59:59 CLS Outpatient BARBARA OSORIO APRN [id number] 01/07/2013 10:02:00 01/07/2013 23:59:59 CLS Outpatient BARBARA OSORIO APRN [id number] 11/24/2016 10:20:39 11/24/2016 23:59:59 CLS Outpatient [id number] 08/24/2017 14:07:00 08/24/2017 23:59:59 CLS Outpatient BARBARA JULIAN [facility] OCC INJURED LEFT FOOT [id number] 08/01/2017 08:00:00 08/01/2017 23:59:59 CLS Outpatient FLORECITA INTERIANO [facility] RAD SCREENING [id number] 06/14/2017 13:46:00 06/14/2017 17:35:00 DIS Outpatient JAHAIRA BLANCAS MD [facility] SDC LEFT INNER THIGH ABSCESS [id number] 06/13/2017 14:19:00 06/13/2017 15:11:00 DIS Outpatient JAHAIRA BLANCAS MD [facility] PREOP LEFT INNER THIGH ABSCESS [id number] 06/10/2017 11:28:00 06/10/2017 13:21:00 DIS Emergency CARLOS BOSS [facility] ER POSS CYST ON INNER THIGH [id number] 03/25/2017 11:15:00 03/25/2017 23:59:59 CLS Outpatient EVAN MENEZES MD [facility] LAB FATIGUE, WT GAIN [id number] 03/25/2017 11:11:00 03/25/2017 23:59:59 CLS Outpatient MAYLIN POZO MD [facility] LAB ANEMIA [id number] 10/27/2016 00:10:00 10/27/2016 23:59:59 CLS Preadmit MAYLIN POZO MD [facility] ANEMIA [id number] 08/10/2016 08:35:00 10/26/2016 00:01:00 DIS Outpatient MAYLIN POZO MD [facility] ANEMIA [id number] 10/11/2016 10:42:00 10/11/2016 23:59:59 CLS Outpatient JOSS CHIANG [facility] LAB E78.2 [id number] 07/27/2016 14:48:00 07/27/2016 23:59:59 CLS Outpatient MAYLIN POZO MD [facility] RAD SCREENING Z12.31 [id number] 05/07/2016 10:20:00 05/07/2016 23:59:59 CLS Outpatient DC FREEDMAN MD [facility] LAB HYPERLIPIDEMIA [id number] 03/12/2016 10:10:00 03/12/2016 23:59:59 CLS Outpatient CLARISSA RAO APRN [facility] LAB ANEMIA, LOW IRON, INFLAMMATION [id number] 11/11/2015 07:27:00 11/11/2015 23:59:59 CLS Outpatient DC FREEDMAN MD [facility] CARD CHEST PAIN SYNDROME, HEART PALPITATIONS [id number] 09/30/2015 08:35:00 09/30/2015 13:38:00 DIS Outpatient JAHAIRA BLANCAS MD [facility] SDC ANEMIA,REFLEX [id number] 09/25/2015 05:38:00 09/25/2015 09:38:00 DIS Outpatient JAHAIRA BLANCAS MD [facility] PREOP ANEMIA/REFLEX [id number] 12/04/2012 20:05:00 12/05/2012 05:50:00 DIS Outpatient LUCIAN ONEILL [facility] SLEEP SNORING [id number] 06/19/2012 10:24:00 Document Registration
[2017-11-18] MEDS ORDERED: ONDANSETRON 4 MG/2 ML (SDV) Z0FRAN ONE ×2 (11:17→14:32)
[2017-11-18] MEDS ORDERED: fentaNYL INJECTION 100 MCG/2 ML AMP ONE ×2 (11:17→13:55)
[2017-11-18 11:23] LABS: BASOPHILS % (AUTO) 0 % (0-10); EOSINOPHILS # (AUTO) 0.1 10^3/uL (0.0-0.3); EOSINOPHILS % (AUTO) 0 % (0-10); HEMATOCRIT 39 % (35-52); LYMPHOCYTES # (AUTO) 0.9 X 10^3 (1.0-4.0); LYMPHOCYTES % (AUTO) 6 % (12-44); MEAN CORPUSCULAR HEMOGLOBIN 31 PG (25-34); MEAN CORPUSCULAR HGB CONC 34 G/DL (32-36); MEAN CORPUSCULAR VOLUME 94 FL (80-99); MEAN PLATELET VOLUME 8.2 FL (7.4-10.4); MONOCYTES # (AUTO) 0.7 X 10^3 (0.0-1.0); MONOCYTES % (AUTO) 4 % (0-12); NEUTROPHILS # (AUTO) 15.2 X 10^3 (1.8-7.8); NEUTROPHILS % (AUTO) 90 % (42-75); PLATELET COUNT 292 10^3/uL (130-400); RED BLOOD COUNT 4.14 10^6/uL (4.35-5.85); RED CELL DISTRIBUTION WIDTH 13.5 % (10.0-14.5); WHITE BLOOD COUNT 16.9 10^3/uL (4.3-11.0)
[2017-11-18] MEDS ORDERED: ONDANSETRON 4 MG/2 ML (SDV) Z0FRAN IVP ONE ×2 (11:30→12:15)
[2017-11-18] MEDS ORDERED: fentaNYL INJECTION 100 MCG/2 ML AMP IVP ONE ×4 (11:30→14:30)
[2017-11-18 11:34] LABS: BILIRUBIN,URINE NEGATIVE (NEGATIVE); CLARITY,URINE CLEAR; COLOR,URINE YELLOW; GLUCOSE, URINE (UA) NEGATIVE (NEGATIVE); KETONES,URINE NEGATIVE (NEGATIVE); LEUKOCYTE ESTERASE ,URINE NEGATIVE (NEGATIVE); NITRITE,URINE NEGATIVE (NEGATIVE); PH,URINE 7 (5-9); PROTEIN,URINE NEGATIVE (NEGATIVE); UROBILINOGEN,URINE NORMAL (NORMAL)
[2017-11-18 11:39] LABS: BAND NEUTROPHILS 0 %; BASOPHILS % (MANUAL) 0 %; EOSINOPHILS % (MANUAL) 1 %; LYMPHOCYTES % (MANUAL) 5 %; MONOCYTES % (MANUAL) 7 %; NEUTROPHILS % (MANUAL) 87 %; RBC MORPH NORMAL
--- NOTE | 2017-11-18 11:41 | ED Abdominal Pain ---
General Chief Complaint: Abdominal/GI Problems Stated Complaint: R SIDE ABD PAIN,STARTED TODAY Source of Information: Patient Exam Limitations: No Limitations History of Present Illness Date Seen by Provider: Nov 18, 2017 Time Seen by Provider: 11:39 Initial Comments Patient is a 57-year-old female who presents to the emergency room with complaints of right lower quadrant abdominal pain. She reports that yesterday she had 1 episode of diarrhea after eating [place] food and some mild abdominal pain that she thought was gas yesterday but this morning she woke up with severe right lower quadrant abdominal pain and nausea. She states that it hurts to walk, every bump that we hit on the right here caused her pain in her right lower quadrant. Timing/Duration: 4-6 Hours Severity/Quality: Moderate, Sharp Location: RLQ Radiation: No Radiation Activities at Onset: None Associated Symptoms: Nausea/Vomiting Allergies and Home Medications Allergies Coded Allergies: amoxicillin (Unverified Allergy, Unknown, RASH, 09/30/15) cefaclor (Unverified Allergy, Unknown, RASH/STOMACH UPSET, 09/30/15) clavulanic acid (Unverified Allergy, Unknown, RASH, 09/30/15) clindamycin (Unverified Allergy, Unknown, STOMACH UPSET/NAUSEA/VOMITING, ) sulfamethoxazole (Unverified Allergy, Unknown, RASH, 09/30/15) tetracycline (Unverified Allergy, Unknown, RASH/STOMACH UPSET, 09/30/15) trimethoprim (Unverified Allergy, Unknown, RASH, 09/30/15) Uncoded Allergies: PCN (Allergy, Unknown, RASH/STOMACH UPSET, 09/30/15) Home Medications Hydrocodone Bit/Acetaminophen 1 Tab Tab, 1-2 TAB PO 4-6HR PRN for PAIN Prescribed by: SELENE PIERRE on 11/18/17 1451 Lifite[employer] 1 Each Droperette, 1 DROP OU BID, (Reported) Omeprazole 40 Mg Capsule.dr, 40 MG PO DAILY, (Reported) Patient Home Medication List Home Medication List Reviewed: Yes Review of Systems Review of Systems Constitutional: see HPI; No chills, No fever Gastrointestinal: See HPI, Abdominal Pain, Diarrhea, Nausea Past Vpqcecl-Zbspia-Hfzdzt Hx Past Med/Social Hx: Reviewed Nursing Past Med/Soc Hx Patient Social History Type Used: Cigarettes Recent Foreign Travel: No Contact w/Someone Who Travel: No Recent Hopitalizations: No Seasonal Allergies Seasonal Allergies: Yes (mild) Past Medical History Surgeries: Yes (NECK SURGERY, CYST OF BUTTOCK) Gallbladder, Tonsillectomy Respiratory: Yes (SLEEP APNEA/CPAP) Sleep Apnea Currently Using CPAP: Yes Cardiac: No Gastrointestinal: No Chronic Constipation Musculoskeletal: Yes Degenerate Disk Disease, Arthritis Endocrine: No Sleep Difficulties Family Medical History Reviewed Nursing Family Hx Physical Exam Vital Signs Vital Signs - First Documented 11/18/17 11:05 Temp 98.8 Pulse 77 Resp 20 B/P (MAP) 112/69 (83) Pulse Ox 98 Capillary Refill : Height/Weight/BMI Height: 5'4.00" Weight: 216lbs. 0.0oz. 97.062557my; 37.1 BMI Method:Stated General Appearance: WD/WN, mild distress Respiratory: chest non-tender, lungs clear, normal breath sounds, no respiratory distress, no accessory muscle use Cardiovascular: regular rate, rhythm, no edema, no gallop, no JVD, no murmur Gastrointestinal: normal bowel sounds, soft, no organomegaly, no pulsatile mass , tenderness (sever rlq tenderness) Progress/Results/Core Measures Results/Orders Lab Results Laboratory Tests Test 11/18/17 11:15 11/18/17 11:20 Range/Units White Blood Count 16.9 H 4.3-11.0 10^3/uL Red Blood Count 4.14 L 4.35-5.85 10^6/uL Hemoglobin 13.0 11.5-16.0 G/DL Hematocrit 39 35-52 % Mean Corpuscular Volume 94 80-99 FL Mean Corpuscular Hemoglobin 31 25-34 PG Mean Corpuscular Hemoglobin Concent 34 32-36 G/DL Red Cell Distribution Width 13.5 10.0-14.5 % Platelet Count 292 130-400 10^3/uL Mean Platelet Volume 8.2 7.4-10.4 FL Neutrophils (%) (Auto) 90 H 42-75 % Lymphocytes (%) (Auto) 6 L 12-44 % Monocytes (%) (Auto) 4 0-12 % Eosinophils (%) (Auto) 0 0-10 % Basophils (%) (Auto) 0 0-10 % Neutrophils # (Auto) 15.2 H 1.8-7.8 X 10^3 Lymphocytes # (Auto) 0.9 L 1.0-4.0 X 10^3 Monocytes # (Auto) 0.7 0.0-1.0 X 10^3 Eosinophils # (Auto) 0.1 0.0-0.3 10^3/uL Basophils # (Auto) 0.0 0.0-0.1 10^3/uL Neutrophils % (Manual) 87 % Lymphocytes % (Manual) 5 % Monocytes % (Manual) 7 % Eosinophils % (Manual) 1 % Basophils % (Manual) 0 % Band Neutrophils 0 % Blood Morphology Comment NORMAL Sodium Level 139 135-145 MMOL/L Potassium Level 4.0 3.6-5.0 MMOL/L Chloride Level 105 98-107 MMOL/L Carbon Dioxide Level 24 21-32 MMOL/L Anion Gap 10 5-14 MMOL/L Blood Urea Nitrogen 11 7-18 MG/DL Creatinine 0.79 0.60-1.30 MG/DL Estimat Glomerular Filtration Rate > 60 BUN/Creatinine Ratio 14 Glucose Level 113 H 70-105 MG/DL Calcium Level 9.3 8.5-10.1 MG/DL Corrected Calcium 9.2 8.5-10.1 MG/DL Total Bilirubin 0.5 0.1-1.0 MG/DL Aspartate Amino Transf (AST/SGOT) 22 5-34 U/L Alanine Aminotransferase (ALT/SGPT) 26 0-55 U/L Alkaline Phosphatase 103 40-136 U/L Total Protein 6.6 6.4-8.2 GM/DL Albumin 4.1 3.2-4.5 GM/DL Amylase Level 42 25-125 U/L Lipase 28 8-78 U/L Urine Color YELLOW Urine Clarity CLEAR Urine pH 7 5-9 Urine Specific Rulo 1.010 L 1.016-1.022 Urine Protein NEGATIVE NEGATIVE Urine Glucose (UA) NEGATIVE NEGATIVE Urine Ketones NEGATIVE NEGATIVE Urine Nitrite NEGATIVE NEGATIVE Urine Bilirubin NEGATIVE NEGATIVE Urine Urobilinogen NORMAL NORMAL MG/DL Urine Leukocyte Esterase NEGATIVE NEGATIVE Urine RBC (Auto) NEGATIVE NEGATIVE Urine RBC NONE /HPF Urine WBC NONE /HPF Urine Squamous Epithelial Cells 0-2 /HPF Urine Crystals NONE /LPF Urine Bacteria NEGATIVE /HPF Urine Casts NONE /LPF Urine Mucus NEGATIVE /LPF Urine Culture Indicated NO My Orders Orders - ALEXIA CASANOVA Comprehensive Metabolic Panel (11/18/17 11:17) Lipase (11/18/17 11:17) Amylase (11/18/17 11:17) Ua Culture If Indicated (11/18/17 11:17) Saline Lock/Iv-Start (11/18/17 11:17) Cbc With Automated Diff (11/18/17 11:17) Ct Abdomen/Pelvis W (11/18/17 11:17) Fentanyl Injection (Sublimaze Injection (11/18/17 11:30) Ondansetron Injection (Zofran Injectio (11/18/17 11:30) Fentanyl Injection (Sublimaze Injection (11/18/17 11:17) Ondansetron Injection (Zofran Injectio (11/18/17 11:17) Manual Differential (11/18/17 11:15) Iohexol Injection (Omnipaque 350 Mg/Ml 1 (11/18/17 12:00) Ondansetron Injection (Zofran Injectio (11/18/17 12:15) Fentanyl Injection (Sublimaze Injection (11/18/17 12:15) Ns Iv 1000 Ml (Sodium Chloride 0.9%) (11/18/17 12:15) Medications Given in ED Vital Signs/I&O 11/18/17 11:05 Temp 98.8 Pulse 77 Resp 20 B/P (MAP) 112/69 (83) Pulse Ox 98 Progress Progress Note : Time: 13:10 Progress Note Patient seen and evaluated. Her pain is controlled with the second dose of fentanyl. I have informed her of her CT findings and I called Dr. Pierre at this time. He informed me that he will be taking her to surgery shortly in the was on his way in. She agrees with plans of care. 1325: Dr. Pierre is here to see the patient at this time. Diagnostic Imaging Diagonstic Imaging: CT Plain Films/CT/US/NM/MRI: abdomen Comments NAME: NAIMA VALADEZ [facility] REC#: [id number] PT STATUS: REG [facility] [place] : 1960 PHYSICIAN: ALEXIA CASANOVA ADMIT DATE: 11/18/17 Signed Date of Exam: 11/18/17 CT ABDOMEN/PELVIS W PROCEDURE: CT abdomen and pelvis with contrast. TECHNIQUE: Multiple contiguous axial images were obtained through the abdomen and pelvis after administration of intravenous contrast. INDICATION: Right lower quadrant abdominal pain. Leukocytosis. COMPARISON: None. FINDINGS: Mild linear atelectasis or scarring in the lung bases. Cholecystectomy. The liver, pancreas, spleen, adrenals, kidneys, collecting systems and bladder are negative. Reproductive structures are grossly unremarkable. Appendicoliths with mild thickening of the appendix and adjacent inflammatory changes in the mesentery fat. No fluid collections. No free intraperitoneal air. No lymphadenopathy. No evidence of bowel obstruction. No acute osseous findings. IMPRESSION: CT findings consistent with acute uncomplicated appendicitis. Dictated by: Dictated on workstation # [id number] Dict: 11/18/17 1252 Trans: 11/18/17 1717 Interpreted by: KRISSY FLORES MD Electronically signed by: KRISSY FLORES MD 11/18/171716 Reviewed: Reviewed by Me Departure Communication (Admissions) Time/Spoke to Admitting Phy: 13:[address] Pierre this time. He will be taking the patient to surgery Impression Primary Impression: Appendicitis Disposition: ADMITTED INPATIENT Condition: Stable/Unchanged Admissions Decision to Admit Reason: Admit from ER (General) Decision to Admit/Date: Nov 18, 2017 Time/Decision to Admit Time: 13:48 Departure-Patient Inst. Referrals: MAYLIN POZO MD (PCP/Family) Primary Care Physician Scripts Hydrocodone Bit/Acetaminophen (Hydrocodone/Acetaminophen 5/325mg Tablet) 1 Tab Tab 1-2 TAB PO 4-6HR PRN for PAIN, #30 TAB 0 Refills Prov: SELENE PIERRE MD 11/18/17 ALEXIA CASANOVA Nov 18, 2017 11:41
[2017-11-18 11:49] LABS: ALANINE AMINOTRANSFERASE 26 U/L (0-55); ALBUMIN 4.1 GM/DL (3.2-4.5); ALKALINE PHOSPHATASE 103 U/L (40-136); AMYLASE 42 U/L (25-125); BILIRUBIN,TOTAL 0.5 MG/DL (0.1-1.0); BUN/CREATININE RATIO 14; CALCIUM 9.3 MG/DL (8.5-10.1); CARBON DIOXIDE 24 MMOL/L (21-32); CHLORIDE 105 MMOL/L (98-107); CREATININE SERUM 0.79 MG/DL (0.60-1.30); GFR ESTIMATED > 60; GLUCOSE 113 MG/DL (70-105); LIPASE 28 U/L (8-78); SODIUM 139 MMOL/L (135-145); TOTAL PROTEIN 6.6 GM/DL (6.4-8.2)
[2017-11-18 11:50] LABS: BACTERIA,URINE NEGATIVE /HPF; SQUAMOUS EPITHELIAL CELL,UR 0-2 /HPF
[2017-11-18] MEDS ORDERED: IOHEXOL 350 MG/ML 100 ML (OMNIPAQUE 350) VIAL IV ONE (12:00)
[2017-11-18] MEDS ORDERED: NS IV 1000 ML 1,000 ML IV SCH (12:15)
--- NOTE | 2017-11-18 12:59 | Diagnostic Imaging Report ---
PROCEDURE: CT abdomen and pelvis with contrast. TECHNIQUE: Multiple contiguous axial images were obtained through the abdomen and pelvis after administration of intravenous contrast. INDICATION: Right lower quadrant abdominal pain. Leukocytosis. COMPARISON: None. FINDINGS: Mild linear atelectasis or scarring in the lung bases. Cholecystectomy. The liver, pancreas, spleen, adrenals, kidneys, collecting systems and bladder are negative. Reproductive structures are grossly unremarkable. Appendicoliths with mild thickening of the appendix and adjacent inflammatory changes in the mesentery fat. No fluid collections. No free intraperitoneal air. No lymphadenopathy. No evidence of bowel obstruction. No acute osseous findings. IMPRESSION: CT findings consistent with acute uncomplicated appendicitis. Dictated by: Dictated on workstation # [id number]
--- OUTSIDE RECORDS SUMMARY | 2017-11-18 13:45 | XMS REPORT | Continuity of Care Document ---
Author Author [facility] Address Unknown Phone Unavailable Allergies Active Description Code Type Severity Reaction Onset Reported/Identified Relationship to Patient Clinical Status Yes amoxicillin [id number] Drug Allergy Unknown RASH 09/30/2015 Yes cefaclor [id number] Drug Allergy Unknown RASH/STOMACH UP 09/30/2015 Yes clavulanic acid [id number] Drug Allergy Unknown RASH 09/30/2015 Yes clindamycin G971028326 Drug Allergy Unknown STOMACH UPSET/N 09/30/2015 Yes PCN PCN Unknown RASH/STOMACH UP 09/30/2015 Yes sulfamethoxazole [id number] Drug Allergy Unknown RASH 09/30/2015 Yes tetracycline [id number] Drug Allergy Unknown RASH/STOMACH UP 09/30/2015 Yes trimethoprim [id number] Drug Allergy Unknown RASH 09/30/2015 Medications There is no data. Problems Date Dx Coded Attending Type Code Diagnosis Diagnosed By 12/05/2012 LUCIAN ONEILL Ot 327.23 OBSTRUCTIVE SLEEP APNEA (ADULT) (PEDIATR 01/07/2013 RAJOTTE CRYPTOGRAPHIC VULNERABILITY ANALYST, BARBARA A V04.81 FLU SHOT 01/07/2013 RAJOTTE CRYPTOGRAPHIC VULNERABILITY ANALYST, BARBARA A V04.81 FLU SHOT 09/25/2015 JAHAIRA [...] OTHER DISEASES OF TH 03/14/2016 CLARISSA RAO CRYPTOGRAPHIC VULNERABILITY ANALYST Ot D64.9 ANEMIA, UNSPECIFIED 03/14/2016 CLARISSA RAO CRYPTOGRAPHIC VULNERABILITY ANALYST Ot E61.1 IRON DEFICIENCY 03/23/2016 CLARISSA RAO CRYPTOGRAPHIC VULNERABILITY ANALYST Ot D64.9 ANEMIA, UNSPECIFIED 03/23/2016 CLARISSA RAO CRYPTOGRAPHIC VULNERABILITY ANALYST Ot E61.1 IRON DEFICIENCY 05/09/2016 DC FREEDMAN [...] R63.5 ABNORMAL WEIGHT GAIN 06/10/2017 GERA, CARLOS DISK SANDER Ot G47.30 SLEEP APNEA, UNSPECIFIED 06/10/2017 GERA, CARLOS DISK SANDER Ot L02.416 CUTANEOUS ABSCESS OF LEFT LOWER LIMB 06/10/2017 GERA, CARLOS DISK SANDER Ot Z88.0 ALLERGY STATUS TO PENICILLIN 06/10/2017 GERA, CARLOS DISK SANDER Ot Z88.1 ALLERGY STATUS TO OTHER ANTIBIOTIC AGENT 06/10/2017 GERA, CARLOS DISK SANDER Ot Z88.2 ALLERGY STATUS TO SULFONAMIDES STATUS 06/10/2017 GERA, CARLOS DISK SANDER Ot Z88.8 ALLERGY STATUS TO OTH DRUG/MEDS/BIOL SUB 06/12/2017 GERA, CARLOS DISK SANDER Ot G47.30 SLEEP APNEA, UNSPECIFIED 06/12/2017 GERA, CARLOS DISK SANDER Ot L02.416 CUTANEOUS ABSCESS OF LEFT LOWER LIMB 06/12/2017 GERA, CARLOS DISK SANDER Ot Z88.0 ALLERGY STATUS TO PENICILLIN 06/12/2017 GERA, CARLOS DISK SANDER Ot Z88.1 ALLERGY STATUS TO OTHER ANTIBIOTIC AGENT 06/12/2017 GERA, CARLOS DISK SANDER Ot Z88.2 ALLERGY STATUS TO SULFONAMIDES STATUS 06/12/2017 GERA, CARLOS DISK SANDER Ot Z88.8 ALLERGY STATUS TO OTH DRUG/MEDS/BIOL [...] Ot Z88.0 ALLERGY STATUS TO PENICILLIN 06/14/2017 AJHAIRA BLANCAS MD Ot Z88.1 ALLERGY STATUS TO [...] indirect bilirubin measurement (mass/volume) 0.4 mg/ dL [facility] Lipid 1996 panel - 05/07/16 10:28 Serum [...] Status Pt. Type Provider Facility Loc./Unit Complaint [id number] 12/27/2013 14:43:00 12/27/2013 23:59:59 CLS Outpatient BARBARA OSORIO APRN [id number] 01/07/2013 10:02:00 01/07/2013 23:59:59 CLS Outpatient BARBARA OSORIO APRN [id number] 11/24/2016 10:20:39 11/24/2016 23:59:59 CLS Outpatient [id number] 08/24/2017 14:07:00 08/24/2017 23:59:59 CLS Outpatient BARBARA JULIAN [facility] OCC INJURED LEFT FOOT [id number] 08/01/2017 08:00:00 08/01/2017 23:59:59 CLS Outpatient FLORECITA INTERIANO [facility] RAD SCREENING [id number] 06/14/2017 13:46:00 06/14/2017 17:35:00 DIS Outpatient JAHAIRA BLANCAS MD [facility] SDC LEFT INNER THIGH ABSCESS [id number] 06/13/2017 14:19:00 06/13/2017 15:11:00 DIS Outpatient JAHAIRA BLANCAS MD [facility] PREOP LEFT INNER THIGH ABSCESS [id number] 06/10/2017 11:28:00 06/10/2017 13:21:00 DIS Emergency CARLOS BOSS [facility] ER POSS CYST ON INNER THIGH [id number] 03/25/2017 11:15:00 03/25/2017 23:59:59 CLS Outpatient EVAN MENEZES MD [facility] LAB FATIGUE, WT GAIN [id number] 03/25/2017 11:11:00 03/25/2017 23:59:59 CLS Outpatient MAYLIN POZO MD [facility] LAB ANEMIA [id number] 10/27/2016 00:10:00 10/27/2016 23:59:59 CLS Preadmit MAYLIN POZO MD [facility] ANEMIA [id number] 08/10/2016 08:35:00 10/26/2016 00:01:00 DIS Outpatient MAYLIN POZO MD [facility] ANEMIA [id number] 10/11/2016 10:42:00 10/11/2016 23:59:59 CLS Outpatient JOSS CHIANG [facility] LAB E78.2 [id number] 07/27/2016 14:48:00 07/27/2016 23:59:59 CLS Outpatient MAYLIN POZO MD [facility] RAD SCREENING Z12.31 [id number] 05/07/2016 10:20:00 05/07/2016 23:59:59 CLS Outpatient DC FREEDMAN MD [facility] LAB HYPERLIPIDEMIA [id number] 03/12/2016 10:10:00 03/12/2016 23:59:59 CLS Outpatient CLARISSA RAO APRN [facility] LAB ANEMIA, LOW IRON, INFLAMMATION [id number] 11/11/2015 07:27:00 11/11/2015 23:59:59 CLS Outpatient DC FREEDMAN MD [facility] CARD CHEST PAIN SYNDROME, HEART PALPITATIONS [id number] 09/30/2015 08:35:00 09/30/2015 13:38:00 DIS Outpatient JAHAIRA BLANCAS MD [facility] SDC ANEMIA,REFLEX [id number] 09/25/2015 05:38:00 09/25/2015 09:38:00 DIS Outpatient JAHAIRA BLANCAS MD [facility] PREOP ANEMIA/REFLEX [id number] 12/04/2012 20:05:00 12/05/2012 05:50:00 DIS Outpatient LUCIAN ONEILL [facility] SLEEP SNORING [id number] 06/19/2012 10:24:00 Document Registration
--- OUTSIDE RECORDS SUMMARY | 2017-11-18 13:45 | XMS REPORT | Clinical Summary ---
Author Author [facility] Organization [facility] Address Unknown Phone Unavailable Care Team Providers Care Patent Solicitor Name Role Phone Porsha Powers MD Unavailable Taylor Cabrales MD PCP Source Comments Some departments are not documenting in the electronic medical record. If you do not see the information that you expected, contact Release of Information in the Health Information Management department at [phone] for further assistance in locating additional records.[facility] Allergies Active Allergy Reactions Severity Noted [...] Take 20 mg by mouth Active daily. Fxzvifzxthqxo-Sykurizc-Nn Take 1 Tab by mouth Active tein [...]
[2017-11-18] MEDS ORDERED: FAMOTIDINE 20MG/2ML IV (PEPCID) ONE (13:48)
[2017-11-18] MEDS ORDERED: SCOPOLAMINE 1.5 MG (TRANSDERM-SCOP) PATCH ONE (13:53)
--- NOTE | 2017-11-18 13:54 | History & Physicial ---
History of Present Illness History of Present Illness Reason for visit/HPI Central abdominal pain radiating and localizing to the right lower quadrant over a 24-hour period. Examination and CT scan have confirmed acute retrocecal appendicitis. Date of Admission 11/18/17 Date Seen by Provider: Nov 18, 2017 Time Seen by Provider: 13:30 I consulted on this patient on 11/18/17 13:52 Attending Physician Selene Alfaro MD Admitting Physician Mirian Ramey MD Consult Allergies and Home Medications Allergies Coded Allergies: amoxicillin (Unverified Allergy, Unknown, RASH, 09/30/15) cefaclor (Unverified Allergy, Unknown, RASH/STOMACH UPSET, 09/30/15) clavulanic acid (Unverified Allergy, Unknown, RASH, 09/30/15) clindamycin (Unverified Allergy, Unknown, STOMACH UPSET/NAUSEA/VOMITING, ) sulfamethoxazole (Unverified Allergy, Unknown, RASH, 09/30/15) tetracycline (Unverified Allergy, Unknown, RASH/STOMACH UPSET, 09/30/15) trimethoprim (Unverified Allergy, Unknown, RASH, 09/30/15) Uncoded Allergies: PCN (Allergy, Unknown, RASH/STOMACH UPSET, 09/30/15) Home Medications Lifitegrast 1 Each Droperette, 1 DROP OU BID, (Reported) Omeprazole 40 Mg Capsule.dr, 40 MG PO DAILY, (Reported) Patient Home Medication List Home Medication List Reviewed: Yes Past Siouajy-Acrake-Gptuds Hx Patient Social History Marrital Status: Employed/Student: employed Alcohol Use: Denies Use Recreational Drug Use: No Smoking Status: Former Smoker Type Used: Cigarettes Recent Foreign Travel: No Contact w/other who traveled: No Recent Hopitalizations: No Recent Infectious Disease Expo: No Seasonal Allergies Seasonal Allergies: Yes (mild) Surgeries Yes (NECK SURGERY, CYST OF BUTTOCK, perianal fistulectomy x2) Gallbladder, Tonsillectomy Respiratory Yes (SLEEP APNEA/CPAP) Sleep Apnea Currently Using CPAP: Yes Cardiovascular No Neurological No 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 Gastrointestinal Yes Chronic Constipation Musculoskeletal Yes Degenerate Disk Disease, Arthritis Endocrine History of Endocrine Disorders: No Cancer No Psychosocial History of Psychiatric Problem: Yes Behavioral Health Disorders: Sleep Difficulties Integumentary History of Skin or Integumenta: No Blood Transfusions History of Blood Disorders: No Review of Systems Constitutional: malaise EENTM: no symptoms reported Respiratory: no symptoms reported Cardiovascular: no symptoms reported Gastrointestinal: see HPI Genitourinary: no symptoms reported Musculoskeletal: no symptoms reported Skin: no symptoms reported Psychiatric/Neurological: No Symptoms Reported Physical Exam Vital Signs Vital Signs - First Documented 11/18/17 11:05 Temp 98.8 Pulse 77 Resp 20 B/P (MAP) 112/69 (83) Pulse Ox 98 Capillary Refill : Less Than 3 Seconds Height, Weight, BMI Height: 5'4.00" Weight: 220lbs. 0.0oz. 99.322231at; 37.1 BMI Method:Stated General Appearance: Mild Distress Neck: Normal Inspection Respiratory: Lungs Clear Cardiovascular: Regular Rate, Rhythm Gastrointestinal: Rebound, Tenderness Extremity: Normal Inspection Neurologic/Psychiatric: Alert, Oriented x3 Skin: Warm/Dry Comments severe rebound tenderness over the right lower quadrant, consistent with appendicitis. Assessment/Plan Assessment and Plan lady with clinical and radiologic features of acute appendicitis. Offered prompt laparoscopic appendectomy, reviewing the details, expected recovery, postoperative complications of wound infection, intra-abdominal abscess etc. Seems to understand and is willing to proceed surgery, that'll be performed emergently. Admission Diagnosis Admission Status: Observation SELENE ALFARO MD Nov 18, 2017 13:54
[2017-11-18] MEDS ORDERED: MIDAZOLAM 2 MG/2 ML (VERSED) VIAL ONE (13:55)
--- NOTE | 2017-11-18 13:55 | Progress Note-Pre Operative ---
Pre-Operative Progress Note H&P Reviewed The H&P was reviewed, patient examined and no changes noted. Date Seen by Provider: Nov 18, 2017 Time Seen by Provider: 13:30 Date H&P Reviewed: Nov 18, 2017 Time H&P Reviewed: 13:55 Pre-Operative Diagnosis: acute appendicitis SELENE PIERRE MD Nov 18, 2017 13:55
[2017-11-18] MEDS: LACTATED RINGERS 1,000 ML IV SCH ×2 (14:02→17:39)
[2017-11-18] MEDS ORDERED: BUP/EPI 0.5% 1:200,000 (SENSORCAINE) 30 ML VIAL ONE (14:03)
[2017-11-18] MEDS ORDERED: morphine INJ 10 MG/ML 1ML (SYR OR VIAL) IVP ONE (14:30)
[2017-11-18] MEDS ORDERED: KETOROLAC 30 MG/ML VIAL IVP ONE (14:30)
[2017-11-18] MEDS ORDERED: PROMETHAZINE INJ 25 MG/ML (PHENERGAN) AMP IVP ONE (14:30)
[2017-11-18] MEDS ORDERED: ONDANSETRON 4 MG/2 ML (SDV) Z0FRAN IVP PRN (14:30)
[2017-11-18] MEDS ORDERED: LACTATED RINGERS 1,000 ML IV PRN (14:32)
[2017-11-18] MEDS ORDERED: LIDOCAINE PF 2% 5 ML (XYLOCAINE) VIAL ONE (14:32)
[2017-11-18] MEDS ORDERED: DEXAMETHASONE 10 MG/ML (DECADRON) 1 ML VIAL ONE (14:32)
[2017-11-18] MEDS ORDERED: proPOfol 200 MG/20 ML (DIPRIVAN) VIAL IV ONE (14:32)
[2017-11-18] MEDS ORDERED: ROCURONIUM 10 MG/ML 5 ML SYRINGE IV ONE (14:32)
[2017-11-18] MEDS ORDERED: KETOROLAC 30 MG/ML VIAL ONE (14:32)
[2017-11-18] MEDS ORDERED: SUCCINYLCHOLINE INJ 100 MG/5 ML SYR ONE (14:32)
[2017-11-18] MEDS ORDERED: NEOSTIGMINE 1 MG/ML 5 ML SYRINGE ONE (14:35)
[2017-11-18] MEDS ORDERED: GLYCOPYRROLATE 0.2 MG/ML (ROBINUL) 2 ML VIAL ONE (14:35)
--- NOTE | 2017-11-18 14:47 | Operative Report ---
Operative Report Date of Procedure/Surgery Nov 18, 2017 Surgeon (s) SELENE PIERRE MD Screw Machine Set Up Operator Tool (s): N/A Post-Operative Diagnosis same Procedure Performed laparoscopic appendectomy Description of Procedure Anesthesia Type: General Estimated blood loss (mL): minimal Specimen(s) collected/removed appendix Description of the Procedure indication for the procedure: This lady presented with acute appendicitis, confirmed by CT scan. She was offered prompt laparoscopic appendectomy. Informed consent was obtained after reviewing the operative details and complications of wound infection and intra-abdominal abscess. Description of procedure: She was placed supine on the operative table and general anesthesia induced. 900 mg of clindamycin and 500 mg of Flagyl were administered intravenously as prophylaxis against wound infection. Abdomen was prepared and draped in the usual sterile manner. A supraumbilical incision was made and the linea alba incised vertically. A Kate cannula was placed and carbon dioxide insufflated, to an intra-abdominal pressure of 15 mmHg. Anatomy was visualized oozing a 30 laparoscope. Under direct view, I placed a 5 mm trocar over the right upper quadrant, followed by total millimeters trocar over the left lower quadrant of the abdomen. The patient was then turned into steep Trendelenburg position, with the right side tilted up. Omentum was displaced out of the right lower quadrant, revealing an acutely inflamed appendix in a retrocecal position. Ileocecal junction was mobilized using Harmonic scalpel and the mesoappendix controlled using the Harmonic scalpel. Appendectomy was then completed using an Endo KIMBERLY 2.5 mm stapler. Hemostasis along the staple line was satisfactory. Appendix was then placed in an Endo Catch bag and removed via the supraumbilical trocar site. The fascia over this incision was closed using number 1 White. Skin incisions were closed using 4-0 Vicryl, in a subcuticular fashion. 0.5 percent Marcaine with epinephrine was infiltrated along the incisions both preemptively and at the conclusion of the operation. She tolerated the procedure well, was extubated in the operating room and taken to recovery room in a stable condition. Findings of the Procedure see operative report Allergies and Home Medications Allergies Coded Allergies: amoxicillin (Unverified Allergy, Unknown, RASH, 09/30/15) cefaclor (Unverified Allergy, Unknown, RASH/STOMACH UPSET, 09/30/15) clavulanic acid (Unverified Allergy, Unknown, RASH, 09/30/15) clindamycin (Unverified Allergy, Unknown, STOMACH UPSET/NAUSEA/VOMITING, ) sulfamethoxazole (Unverified Allergy, Unknown, RASH, 09/30/15) tetracycline (Unverified Allergy, Unknown, RASH/STOMACH UPSET, 09/30/15) trimethoprim (Unverified Allergy, Unknown, RASH, 09/30/15) Uncoded Allergies: PCN (Allergy, Unknown, RASH/STOMACH UPSET, 09/30/15) Home Medications Lifitegrast 1 Each Droperette, 1 DROP OU BID, (Reported) Omeprazole 40 Mg Capsule.dr, 40 MG PO DAILY, (Reported) Patient Home Medication List Home Medication List Reviewed: Yes Copy Copies To 1: MAYLIN POZO MD, XAVIER M MD Nov 18, 2017 14:47
[2017-11-18] MEDS ORDERED: ACHD5005 PO (14:51)
--- NOTE | 2017-11-18 14:53 | Discharge Inst-Simple/Standard ---
Discharge Inst-Standard Discharge Medications New, Converted or Re-Newed RX: RX on Chart Patient Instructions/Follow Up Plan of Care/Instructions/FU: Band-Aids off in a.m. Incentive spirometry for 48 hours. Follow-up in 10 days. Activity as Tolerated: Yes Discharge Diet: No Restrictions SELENE PIERRE MD Nov 18, 2017 14:52
[2017-11-18] MEDS ORDERED: HYDROcodone/APAP 5 MG/325 MG (LORTAB) TAB PO PRN (15:00)
[2017-11-18] MEDS ORDERED: ONDANSETRON 4 MG/2 ML (SDV) Z0FRAN IV PRN (15:00)
[2017-11-18] MEDS ORDERED: fentaNYL INJECTION 100 MCG/2 ML AMP IV PRN (15:00)
[2017-11-18] MEDS ORDERED: NICOTINE 14 MG (NICODERM) PATCH TD ONE (15:00)
[2017-11-18] MEDS ORDERED: CLINDAMYCIN 900 MG/50 ML IVPB 50 ML IV ONE (15:15)
[2017-11-18] MEDS ORDERED: metroNIDAZOLE 500MG/100ML IVPB 100 ML IV ONE (15:15)
[2017-11-18] MEDS ORDERED: SEVOFLURANE (ULTANE) 15 ML INHAL SOLN ONE (15:52)
[2017-11-18 16:00] VITALS: BP 107/59
[2017-11-18 19:45] VITALS: BP 108/63
[2017-11-18] MEDS ORDERED: GENTAMICIN (ADULT) INJECTION 80 MG in NS (IVPB) 100 ML IV ONE (21:00)
[2017-11-18] MEDS: metroNIDAZOLE 500MG/100ML IVPB 100 ML IV SCH (22:18)
[2017-11-19] VITALS: BP 102/51
[2017-11-19] MEDS ORDERED: KETOROLAC 30 MG/ML VIAL ONE (02:13)
[2017-11-19 04:00] VITALS: BP 90/55
[2017-11-19] MEDS: metroNIDAZOLE 500MG/100ML IVPB 100 ML IV SCH (05:48)
[2017-11-19] MEDS ORDERED: KETOROLAC 15 MG/ML VIAL IV SCH (06:00)
[2017-11-19 08:00] VITALS: BP 98/51
[2017-11-19 10:42] VITALS: BP 98/51
--- NOTE | 2017-11-19 11:27 | Progress Note-Standard ---
Standard Progress Note Progress Notes/Assess & Plan Date Seen by Provider: Nov 19, 2017 Time Seen by Provider: 09:05 Progress/Assessment & Plan doing well. Pain control adequate. Afebrile. Tolerating diet. Could be discharged home. Final Diagnosis acute appendicitis SELENE PIERRE MD Nov 19, 2017 11:27
== END 2017-11-19 10:42 | disposition home or self-care (01) ==
LOC: EDUNIT# 11:00 → ER 11:01 → SDC 13:40 → 4TH 16:00 → SDC 11-19 10:42
PROVIDERS: ATTEND Surgery
DX: K35.80 Unspecified acute appendicitis (principal); G47.33 Obstructive sleep apnea (adult) (pediatric); K59.09 Other constipation; K21.9 Gastro-esophageal reflux disease without esophagitis; Z87.891 Personal history of nicotine dependence
CPT/HCPCS: 36415; 74177; 80053; 81000; 82150; 83690; 85007; 85027; 88304; 94664; 96361; 96374; 96375; 96376

== ENCOUNTER → 2018-01-13 | Outpatient (CLI) | payer BC ==
[~2018-01-13] MED LIST changes: +ACHD5005 PO
[2018-01-13 10:27] LABS: BASOPHILS # (AUTO) 0.1 10^3/uL (0.0-0.1); BASOPHILS % (AUTO) 1 % (0-10); EOSINOPHILS # (AUTO) 0.1 10^3/uL (0.0-0.3); EOSINOPHILS % (AUTO) 2 % (0-10); HEMATOCRIT 41 % (35-52); HEMOGLOBIN 13.2 G/DL (11.5-16.0); LYMPHOCYTES # (AUTO) 1.2 X 10^3 (1.0-4.0); LYMPHOCYTES % (AUTO) 17 % (12-44); MEAN CORPUSCULAR HEMOGLOBIN 31 PG (25-34); MEAN CORPUSCULAR HGB CONC 33 G/DL (32-36); MEAN CORPUSCULAR VOLUME 95 FL (80-99); MEAN PLATELET VOLUME 8.5 FL (7.4-10.4); MONOCYTES # (AUTO) 0.4 X 10^3 (0.0-1.0); MONOCYTES % (AUTO) 6 % (0-12); NEUTROPHILS % (AUTO) 74 % (42-75); PLATELET COUNT 302 10^3/uL (130-400); RED BLOOD COUNT 4.26 10^6/uL (4.35-5.85); RED CELL DISTRIBUTION WIDTH 14.5 % (10.0-14.5); WHITE BLOOD COUNT 6.8 10^3/uL (4.3-11.0)
[2018-01-13 10:48] LABS: ALANINE AMINOTRANSFERASE 19 U/L (0-55); ALBUMIN 4.4 GM/DL (3.2-4.5); ALKALINE PHOSPHATASE 87 U/L (40-136); BILIRUBIN,TOTAL 0.8 MG/DL (0.1-1.0); BUN/CREATININE RATIO 14; CALCIUM 9.5 MG/DL (8.5-10.1); CARBON DIOXIDE 25 MMOL/L (21-32); CHLORIDE 105 MMOL/L (98-107); CHOLESTEROL 194 MG/DL (< 200); CREATININE SERUM 0.77 MG/DL (0.60-1.30); GFR ESTIMATED > 60; GLUCOSE 104 MG/DL (70-105); HDL CHOLESTEROL 45 MG/DL (40-60); POTASSIUM 4.4 MMOL/L (3.6-5.0); SODIUM 140 MMOL/L (135-145); TOTAL PROTEIN 6.9 GM/DL (6.4-8.2); TRIGLYCERIDES 126 MG/DL (<150); VLDL CHOLESTEROL 25 MG/DL (5-40)
== END ==
LOC: LAB 10:07
PROVIDERS: ATTEND Family Medicine
DX: Z00.00 Encounter for general adult medical examination without abnormal findings (principal); D50.9 Iron deficiency anemia, unspecified; E55.9 Vitamin D deficiency, unspecified; R73.9 Hyperglycemia, unspecified; E66.9 Obesity, unspecified; Z79.899 Other long term (current) drug therapy
CPT/HCPCS: 36415; 80053; 80061; 82306; 82728; 83036; 83540; 84443; 85025

== ENCOUNTER 2018-04-27 05:30 | Outpatient (CLI) | payer BC ==
[~2018-04-27] VITALS: Ht 162.6 cm; Wt 99.8 kg
== END 2018-04-27 16:00 | disposition home or self-care (01) ==
LOC: PREOP 05:30
PROVIDERS: ATTEND Surgery
DX: Z01.818 Encounter for other preprocedural examination (principal)

== ENCOUNTER 2018-05-03 12:08 | Day surgery (SDC) | payer BC ==
[~2018-05-03] VITALS: Ht 162.6 cm; Wt 99.8 kg
[~2018-05-03 12:08] MED LIST changes: +ASCO-262 PO; +MULT-884 PO
[2018-05-03] MEDS ORDERED: LACTATED RINGERS 1,000 ML IV PRN (12:22)
[2018-05-03 12:30] VITALS: BP 107/82
[2018-05-03] MEDS ORDERED: LEVOFLOXACIN 500 MG/100 ML IV 100 ML IV ONE (12:30)
[2018-05-03] MEDS ORDERED: ONDANSETRON 4 MG/2 ML (SDV) Z0FRAN ONE ×2 (13:28→14:41)
[2018-05-03] MEDS ORDERED: FAMOTIDINE 20MG/2ML IV (PEPCID) ONE (13:28)
[2018-05-03] MEDS ORDERED: SCOPOLAMINE 1.5 MG (TRANSDERM-SCOP) PATCH ONE (13:29)
[2018-05-03] MEDS ORDERED: FAMOTIDINE 20MG/2ML IV (PEPCID) IV ONE (13:30)
[2018-05-03] MEDS ORDERED: ONDANSETRON 4 MG/2 ML (SDV) Z0FRAN IV ONE (13:30)
[2018-05-03] MEDS ORDERED: SCOPOLAMINE 1.5 MG (TRANSDERM-SCOP) PATCH TOP ONE (13:30)
--- NOTE | 2018-05-03 13:54 | Progress Note-Pre Operative ---
Pre-Operative Progress Note H&P Reviewed The H&P was reviewed, patient examined and no changes noted. Date Seen by Provider: May 03, 2018 Time Seen by Provider: 13:30 Date H&P Reviewed: May 03, 2018 Time H&P Reviewed: 13:30 Pre-Operative Diagnosis: sx left thigh lesion JAHAIRA BLANCAS MD May 03, 2018 13:54
[2018-05-03] MEDS ORDERED: HYDR-34 PO (13:55)
--- NOTE | 2018-05-03 13:56 | Discharge Inst-Surgical ---
D/C Lap Instructions-KIDAshlee New, Converted, or Re-Newed RX: RX on Chart Follow Up Appt in 2 weeks Activity as tolerated Regular Diet Symptoms to Report: Fever over 101 degree F, Nausea/Vomiting Infection Signs and Symptoms to report: Increased redness, Foul odor of wound, Increased drainage Bathing instructions: May shower Operative Area Clean/Dry; Keep incision clean/dry If any problems/questions: Contact your physician or go to Emergency Room JAHAIRA BLANCAS MD May 03, 2018 13:56
[2018-05-03] MEDS ORDERED: HYDROcodone/APAP 5 MG/325 MG (LORTAB) TAB PO ONE (14:00)
[2018-05-03] MEDS ORDERED: ACETAMINOPHEN 325 MG TABLET PO PRN (14:00)
[2018-05-03] MEDS ORDERED: ONDANSETRON 4 MG/2 ML (SDV) Z0FRAN IVP PRN ×2 (14:00→16:30)
[2018-05-03] MEDS ORDERED: morphine INJ 10 MG/ML 1ML (SYR OR VIAL) IVP PRN (14:00)
[2018-05-03] MEDS ORDERED: BUP/EPI 0.5% 1:200,000 (SENSORCAINE) 30 ML VIAL ONE (14:30)
[2018-05-03] MEDS ORDERED: proPOfol 200 MG/20 ML (DIPRIVAN) VIAL IV ONE (14:41)
[2018-05-03] MEDS ORDERED: LIDOCAINE PF 2% 5 ML (XYLOCAINE) VIAL ONE (14:41)
[2018-05-03] MEDS ORDERED: fentaNYL INJECTION 100 MCG/2 ML AMP ONE (14:41)
[2018-05-03] MEDS ORDERED: ROCURONIUM 10 MG/ML 5 ML SYRINGE IV ONE (14:41)
[2018-05-03] MEDS ORDERED: MIDAZOLAM 2 MG/2 ML (VERSED) VIAL ONE (14:42)
[2018-05-03] MEDS ORDERED: SEVOFLURANE (ULTANE) 15 ML INHAL SOLN ONE ×4 (14:45→16:15)
[2018-05-03] MEDS ORDERED: DEXAMETHASONE 10 MG/ML (DECADRON) 1 ML VIAL ONE (14:45)
--- NOTE | 2018-05-03 16:29 | Anesthesia-General Post-Op ---
General Patient Condition Mental Status/LOC: Same as Preop Cardiovascular: Satisfactory Nausea/Vomiting: Absent Respiratory: Satisfactory Pain: Controlled Complications: Absent Post Op Complications Complications None Follow Up Care/Instructions Patient Instructions None needed. Anesthesia/Patient Condition Patient Condition Patient is doing well, no complaints, stable vital signs, no apparent adverse anesthesia problems. No complications reported per nursing. LAZARO TA CRNA May 03, 2018 16:29
[2018-05-03] MEDS ORDERED: MEPERIDINE (DEMEROL) INJ 50 MG/ML IVP ONE (16:30)
[2018-05-03] MEDS ORDERED: morphine INJ 10 MG/ML 1ML (SYR OR VIAL) IVP ONE (16:30)
--- NOTE | 2018-05-03 16:33 | Progress Note-Post Operative ---
Post-Operative Progess Note Surgeon (s)/Aerial Hurricane Hunter (s) Surgeon JAHAIRA BLANCAS MD Aerial Hurricane Hunter: karly rodriguez ROTATING EQUIPMENT ENGINEER Pre-Operative Diagnosis sx left thigh lesion Post-Operative Diagnosis same(1cm) Procedure & Operative Findings Date of Procedure 05/03/18 Procedure Performed/Findings excision lesion left thigh(1cm). Anesthesia Type general LMA Estimated Blood Loss Estimated blood loss (mL): minimal Specimens/Packing Specimens Removed recurrent thigh lesion JAHAIRA BLANCAS MD May 03, 2018 16:33
[2018-05-03 17:30] VITALS: BP 113/58
[2018-05-03] MEDS ORDERED: TRAM50TA2 PO (17:50)
[2018-05-03 18:00] VITALS: BP 110/62
--- NOTE | 2018-05-03 18:03 | NUR ---
1730 - PT RETURNED FROM PAR. VOMITED 50 ML YELLOWISH EMESIS. 1800 - NO FURTHER EMESIS. TAKING SIPS OF SPRITE. Addendum: 05/03/18 at 1805 by FLORECITA MORAN RN Amended: Links added.
--- NOTE | 2018-05-03 18:20 | NUR ---
1814 - VOMITED [address] BLANCAS NOT[address]. DR BLANCAS STATED, "SEND HER HOME WITH ZOFRAN." NEW ORDER RECEIVED FOR ZOFRAN 4 MG PO EVERY 4 HOURS PRN N/V. Addendum: 05/03/18 at 1823 by FLORECITA MORAN RN Amended: Links added.
[2018-05-03 18:30] VITALS: BP 113/60
--- NOTE | 2018-05-03 22:51 | OPERATIVE REPORT ---
DATE OF SERVICE: 05/03/2018 ATTENDING PRIMARY CARE PHYSICIAN: Dr. Ramey. PREOPERATIVE DIAGNOSIS: Recurrent inclusion cyst, left perineum. POSTOPERATIVE DIAGNOSIS: Recurrent inclusion cyst, left perineum. PROCEDURE: Formal excision inclusion cyst, left perineum. The lesion approximately 1 cm in size. SURGEON: Jahaira Blancas MD BALANCE WHEEL SCREW HOLE DRILLER: Jevon Campos APRN. ANESTHESIA: General laryngeal mask airway. ESTIMATED BLOOD LOSS: Minimal. FINDINGS: Chronic inclusion cyst in the perineal region with no current infection. DISPOSITION: The patient tolerated the procedure well. INDICATIONS: The patient is a 57-year-old female known to us. She developed pain and swelling along the left perineal region, which she reports would open up and she would squeeze it and there would be a white and bloody drainage. She reports that then afterwards this was improved; however reoccur. She has had recurrent swelling and this time around was more significant. She then underwent incision and drainage of an abscess and placed on antibiotics. She returned in 01/2018 with a recurrence of the lesion and underwent another incision and drainage. The cyst was excised in 06/2017; however, she reports that she has had a reoccurrence. Since being placed on antibiotics, the lesion has become asymptomatic; however, there appears to be a recurrent sebaceous cyst of the left perineum. DESCRIPTION OF PROCEDURE: The patient was brought to the operating room, laid supine on the table. After adequate IV pain and sedative medications and general laryngeal mask airway intubation, the patient was placed in frog leg position and the perineum prepped and draped in standard surgical fashion. The area was then anesthetized using 0.5% Marcaine with epinephrine. The chronically inflamed skin was then excised in an elliptical shape using 15 blade. The entire cyst capsule as well as the surrounding subcutaneous fat was then excised using electrocautery. Good hemostasis was observed. Subcutaneous tissue was then reapproximated using 3-0 Vicryl interrupted suture and skin was closed using 4-0 Monocryl running subcuticular suture. Wound was then cleaned and covered with Dermabond. The patient tolerated the procedure well. The skin was closed using 4-0 nylon interrupted sutures. The wound was then cleaned and covered with gauze. The patient will be advised to keep the area clean and dry and to place gauze dressing on b.i.d. as well as p.r.n. basis. We will have her follow up in approximately two weeks for suture removal. Job ID: [id number] DocumentID: [id number] Dictated Date: 05/03/2018 16:19:39 Transportation Mechanic Date: 05/03/2018 22:50:31 Dictated By: JAHAIRA BLANCAS MD
== END 2018-05-03 18:55 | disposition home or self-care (01) ==
LOC: SDC 12:08
PROVIDERS: ATTEND Surgery
DX: L72.0 Epidermal cyst (principal); G47.33 Obstructive sleep apnea (adult) (pediatric); K21.9 Gastro-esophageal reflux disease without esophagitis; F17.210 Nicotine dependence, cigarettes, uncomplicated; E66.9 Obesity, unspecified; Z68.37 Body mass index [BMI] 37.0-37.9, adult
CPT/HCPCS: 87081

== ENCOUNTER → 2018-07-26 | Outpatient (CLI) | payer BC ==
[~2018-07-26] MED LIST changes: +HYDR-34 PO; +TRAM50TA2 PO
--- NOTE | 2018-07-30 08:28 | Diagnostic Imaging Report ---
Indication: Right hip pain 2 views of the right hip show no fracture or dislocation. Joint spaces are well maintained. Impression: Negative right hip Dictated by: Dictated on workstation # [id number]
== END ==
LOC: RAD 15:39
PROVIDERS: ATTEND Family Medicine
DX: M25.551 Pain in right hip (principal)
CPT/HCPCS: 73502

== ENCOUNTER → 2018-08-14 | Outpatient (CLI) | payer BC ==
--- NOTE | 2018-08-14 21:17 | Diagnostic Imaging Report ---
INDICATION: Routine screening. Comparison is made with prior mammograms from 08/01/2017 and 07/27/2016. 2-D and 3-D bilateral screening mammography was performed with a Computer Aided Detection (CAD) system. 3-D tomosynthesis was also performed and reviewed. FINDINGS: Scattered fibroglandular densities are identified bilaterally. No mass or malignant-appearing microcalcifications are seen. Axillae are unremarkable. IMPRESSION: No mammographic features suspicious for malignancy are identified. ACR BI-RADS Category 1: Negative. Result letter will be mailed to the patient. Note: At least 10% of breast cancer is not imaged by mammography. Dictated by: Dictated on workstation # [id number]
== END ==
LOC: RAD 13:09
PROVIDERS: ATTEND Family Medicine
DX: Z12.31 Encounter for screening mammogram for malignant neoplasm of breast (principal)
CPT/HCPCS: 77067

== ENCOUNTER 2019-05-24 12:41 | Outpatient (RCR) | payer BC ==
[~2019-05-24] VITALS: Ht 162.6 cm; Wt 104.5 kg
[~2019-05-24 12:41] MED LIST changes: +OMEP40CA27 PO; -OMEP40CA36 PO; -TRAM50TA2 PO; +TRM50T PO
[2019-05-24 13:00] VITALS: BP 119/87
[2019-05-24] MEDS: FERRIC CARBOXYMALTOSE INJ 750 MG in NS (IVPB) 250 ML IV SCH (13:43)
[2019-05-31 12:58] VITALS: BP 116/82
[2019-05-31] MEDS: FERRIC CARBOXYMALTOSE INJ 750 MG in NS (IVPB) 250 ML IV SCH (13:35)
== END 2019-05-31 14:30 | disposition home or self-care (01) ==
LOC: SDC 12:41
PROVIDERS: ATTEND Family Medicine
DX: D50.9 Iron deficiency anemia, unspecified (principal)
CPT/HCPCS: 96365

== ENCOUNTER → 2019-10-17 | Outpatient (CLI) | payer BC ==
[~2019-10-17] MED LIST changes: +MULT-567 PO; -MULT1TAB69 PO
--- NOTE | 2019-10-18 08:46 | Diagnostic Imaging Report ---
INDICATION: Routine screening. Comparison is made with prior mammogram from 08/14/2018 and 08/01/2017. 2-D and 3-D bilateral screening mammography was performed with CAD. Scattered fibroglandular densities are identified bilaterally. The parenchymal pattern is stable. No mass or malignant appearing microcalcifications are seen. Axillae are unremarkable. IMPRESSION: BI-RADS Category 1 No mammographic features suspicious for malignancy are identified. ACR BI-RADS Category 1: Negative. Result letter will be mailed to the patient. Note: At least 10% of breast cancer is not imaged by mammography. Dictated by: Dictated on workstation # [id number]
== END ==
LOC: RAD 14:28
PROVIDERS: ATTEND Family Medicine
DX: Z12.31 Encounter for screening mammogram for malignant neoplasm of breast (principal)
CPT/HCPCS: 77063; 77067

== ENCOUNTER → 2020-02-27 | Outpatient (REF) ==
--- NOTE | 2020-02-27 13:29 | Diagnostic Imaging Report ---
EXAMINATION: Left knee radiographs, 3 views. COMPARISON: None. HISTORY: 59-year-old male, left knee pain after fall. FINDINGS: There is no identified acute fracture. There is no knee joint effusion. There is no radiopaque foreign body. The joint spaces appear well preserved. IMPRESSION: No acute bony abnormality of the left knee. Dictated by: Dictated on workstation # [id number]
== END ==
LOC: OCC 12:53
PROVIDERS: ATTEND Nurse Practitioner Family
DX: M25.562 Pain in left knee (principal); W19.XXXA Unspecified fall, initial encounter
CPT/HCPCS: 73562

== ENCOUNTER → 2020-03-11 | Outpatient (REF) ==
--- NOTE | 2020-03-11 10:19 | Diagnostic Imaging Report ---
INDICATION: Fall with left ankle injury. TIME OF EXAM: 10:04 AM FINDINGS: 3 views of the left ankle were obtained. Alignment is normal. Ankle mortise is well maintained. Talar dome is smooth. No fracture or dislocation is identified. There is a small plantar calcaneal spur. IMPRESSION: No acute bony abnormality is detected. Dictated by: Dictated on workstation # [id number]
--- NOTE | 2020-03-11 10:21 | Diagnostic Imaging Report ---
INDICATION: Fall with left leg injury. TIME OF EXAM: 10:03 a.m. FINDINGS: Frontal and lateral views of the left tibia and fibula were obtained. Alignment at the knee and ankle is normal. Tibia and fibula appear intact. No fractures are seen. Soft tissues are unremarkable. IMPRESSION: No acute bony abnormality is detected. Dictated by: Dictated on workstation # [id number]
--- NOTE | 2020-03-11 10:22 | Diagnostic Imaging Report ---
INDICATION: Fall with left foot injury. TIME OF EXAM: 10:05 a.m. TECHNIQUE: Three views of the left foot were obtained. FINDINGS: Metatarsals are intact. Phalanges are intact. Midfoot and hindfoot are unremarkable apart from a small plantar calcaneal spur. No fractures are seen. IMPRESSION: No acute bony abnormality is detected. Dictated by: Dictated on workstation # [id number]
== END ==
LOC: OCC 09:50
PROVIDERS: ATTEND Nurse Practitioner Family
DX: S89.92XA Unspecified injury of left lower leg, initial encounter (principal); S99.922A Unspecified injury of left foot, initial encounter; S99.912A Unspecified injury of left ankle, initial encounter
CPT/HCPCS: 73590; 73610; 73630

== ENCOUNTER → 2020-03-12 | Outpatient (REF) ==
--- NOTE | 2020-03-12 12:42 | Diagnostic Imaging Report ---
EXAMINATION: Magnetic resonance imaging of the left knee without intravenous contrast DATE: March 12, 2020. COMPARISON: Left knee radiographs February 27, 2020. INDICATION: 59-year-old female, fall 3 weeks ago. Left knee pain. TECHNIQUE: Multiplanar, multisequence non contrast enhanced MR imaging was accomplished. FINDINGS: There are substantial motion limitations of the exam. MENISCI: The medial meniscus is intact. The lateral meniscus is intact. LIGAMENTS AND TENDONS: The anterior and posterior cruciate ligaments are intact. The medial collateral ligament is intact. The iliotibial band, mid third lateral capsular ligament, fibular collateral ligament, biceps femoris tendon and conjoined tendon are intact. The quadriceps tendon and patella ligament are intact. JOINT: The patellar cartilage appears intact. There is very limited evaluation of the additional cartilage relating to the degree of motion related artifact without identified cartilage defect. There is no knee joint effusion, prominent synovitis, or intra-articular body. BONE: There is unremarkable bone marrow signal. Specifically, negative for fracture, osteomyelitis, osteonecrosis, or marrow replacing process. BURSAE AND SOFT TISSUES: There is nonspecific anterior subcutaneous edema. There is a very small slitlike Gar's cyst. IMPRESSION: 1. Substantial motion limitations of the exam. 2. Grossly intact menisci and cruciate ligaments. Additional ligaments and tendons are also grossly intact. 3. No identified cartilage defect. No knee joint effusion. 4. No acute fracture, bone contusion, or evidence of osteonecrosis. 5. Very small slitlike Gar's cyst and nonspecific predominantly anterior subcutaneous edema. Dictated by: Dictated on workstation # [id number]
== END ==
LOC: RAD 09:47
PROVIDERS: ATTEND Nurse Practitioner Family
DX: M25.562 Pain in left knee (principal)
CPT/HCPCS: 73721

== ENCOUNTER → 2020-03-17 | Outpatient (CLI) | payer BC ==
--- NOTE | 2020-03-18 08:16 | Diagnostic Imaging Report ---
INDICATION: Postmenopausal female. COMPARISON: None FINDINGS: AP Spine L2-L4: [BMD (g/cm2): 1.126] [T-Score: -0.6] [Z-Score: -0.7] [BMD Previous: NA] [BMD % Change: NA] LT Hip Neck: [BMD (g/cm2): 0.825] [T-Score: -1.5] [Z-Score: -1.1] LT Hip Total: [BMD (g/cm2):0.935] [T-Score:-0.6] [Z-Score: -0.6] [BMD Previous: NA] [BMD % Change: NA] RT Hip Neck: [BMD (g/cm2):0.845] [T-Score:-1.4] [Z-Score:-1.0] RT Hip Total: [BMD (g/cm2):0.986] [T-score:-0.2] [Z-Score:-0.2] [BMD Previous:NA] [BMD % Change:NA] *Indicates significant change from prior examination based on 95% confidence level. World Health Organization criteria for BMD interpretation classify patients as Normal (T-score at or above -1.0), Osteopenic (T-score between -1.0 and -2.5) or Osteoporotic (T-score at or below -2.5). LIMITATIONS AND MODIFICATION: None. FRACTURE RISK (FRAX SCORE): The ten year probability of (%): Major Osteoporotic Fracture: [6.9] Hip Fracture: [0.5] IMPRESSION: 1. Osteopenia (Low bone mass). 2. Baseline examination. 3. See below National Osteoporosis Foundation guidelines on when to potentially initiate pharmacologic therapy. Based on the National Osteoporosis Foundation Guidelines, pharmacologic treatment should be initiated in any of the following, unless clinical conditions suggest otherwise: * Any patient with prior fragility fracture of the hip or vertebrae. A spine fracture indicates 5X risk for subsequent spine fracture and 2X risk for subsequent hip fracture. * Osteoporosis (T-score <-2.5). * Postmenopausal women and men age 50 and older with low bone mass/osteopenia (T-score between -1.0 and -2.5) by DXA and 10-year major osteoporotic fracture greater than 20% or a 10-year probability of hip fracture greater than 3%. These fracture risks are supplied above in the FRAX score, if applicable. * Clinician judgement and/or patient preferences may indicate treatment for people with 10-year fracture probabilities above or below these levels. Dictated by: Dictated on workstation # [id number]
== END ==
LOC: RAD 12:55
PROVIDERS: ATTEND Internal Medicine Gastroenterology
DX: M85.80 Other specified disorders of bone density and structure, unspecified site (principal); E55.9 Vitamin D deficiency, unspecified; Z78.0 Asymptomatic menopausal state
CPT/HCPCS: 77080

== ENCOUNTER 2020-05-08 15:00 | Outpatient (RCR) | payer OTHER | END 2020-05-08 15:53 | disposition home or self-care (01) | PROVIDERS: ATTEND Nurse Practitioner Family | DX: S80.02XA Contusion of left knee, initial encounter (principal) ==

== ENCOUNTER → 2020-11-10 | Outpatient (CLI) | payer BC ==
[~2020-11-10] MED LIST changes: -OMEP40CA27 PO; +OMEP40CA6 PO
--- NOTE | 2020-11-10 19:23 | Diagnostic Imaging Report ---
INDICATION: Routine screening. COMPARISON is made with prior mammograms from 10/17/2019 and 08/14/2018. 2-D and 3-D bilateral screening mammography was performed with CAD. There are scattered fibroglandular densities in both breasts. No mass or malignant-appearing microcalcifications are seen. Axillae are unremarkable. IMPRESSION: BI-RADS Category 1 No mammographic features suspicious for malignancy are identified. ACR BI-RADS Category 1: Negative. Result letter will be mailed to the patient. Note: At least 10% of breast cancer is not imaged by mammography. Dictated by: Dictated on workstation # [id number]
== END ==
LOC: RAD 15:15
PROVIDERS: ATTEND Family Medicine
DX: Z12.31 Encounter for screening mammogram for malignant neoplasm of breast (principal)
CPT/HCPCS: 77063; 77067

== ENCOUNTER 2021-03-11 10:36 | Outpatient (RCR) | payer BC | END 2021-03-12 | disposition home or self-care (01) | PROVIDERS: ATTEND Family Medicine | DX: M54.50 Low back pain, unspecified (principal); M54.31 Sciatica, right side; M95.5 Acquired deformity of pelvis ==

== ENCOUNTER 2021-04-01 16:10 | Outpatient (RCR) | payer BC | END 2021-04-12 | disposition home or self-care (01) | PROVIDERS: ATTEND Family Medicine | DX: M54.40 Lumbago with sciatica, unspecified side (principal) ==

== ENCOUNTER 2021-05-03 15:56 | Outpatient (RCR) | payer BC | END 2021-05-10 | disposition home or self-care (01) | PROVIDERS: ATTEND Family Medicine | DX: M54.40 Lumbago with sciatica, unspecified side (principal); M95.5 Acquired deformity of pelvis ==

== ENCOUNTER 2021-05-12 16:20 | Outpatient (RCR) | payer BC | END 2021-05-13 10:37 | disposition home or self-care (01) | PROVIDERS: ATTEND Family Medicine | DX: M54.40 Lumbago with sciatica, unspecified side (principal); M95.5 Acquired deformity of pelvis ==

== ENCOUNTER → 2021-10-21 | Outpatient (CLI) | payer BC ==
--- NOTE | 2021-10-21 16:29 | Diagnostic Imaging Report ---
PROCEDURE: MR imaging cervical spine without contrast. TECHNIQUE: Multiplanar, multisequence MR imaging of the cervical spine was performed without contrast. INDICATION: Neck pain and left arm numbness. FINDINGS: There are postsurgical changes of an anterior cervical fusion at C5-C6. The alignment of cervical spine is normal. The vertebral body heights are well maintained. The prevertebral soft tissues are within normal limits. Posterior fossa is unremarkable. The visualized portions of the spinal cord are normal in signal intensity and morphology. C2-C3 is unremarkable. C3-C4 is unremarkable. At C4-C5 there is some right uncovertebral joint hypertrophy and mild right neural foraminal encroachment. At C5-C6 there is bilateral uncovertebral hypertrophy and mild to moderate bilateral neuroforaminal encroachment. At C6-C7 there is minimal bulging and bilateral uncovertebral joint hypertrophy. There is slight effacement of ventral thecal sac and mild bilateral neuroforaminal encroachment. C7-T1 is unremarkable. IMPRESSION: Degenerative and postsurgical changes in cervical spine, as described. Dictated by: Dictated on workstation # [id number]
== END ==
LOC: RAD 12:30
PROVIDERS: ATTEND Nurse Practitioner Family
DX: M47.812 Spondylosis without myelopathy or radiculopathy, cervical region (principal); M50.223 Other cervical disc displacement at C6-C7 level; M48.02 Spinal stenosis, cervical region; Z98.1 Arthrodesis status
CPT/HCPCS: 72141

== ENCOUNTER → 2021-12-17 | Outpatient (CLI) | payer BC ==
--- NOTE | 2021-12-20 10:11 | Diagnostic Imaging Report ---
INDICATION: Routine screening. COMPARISON: 11/10/2020 and 10/17/2019. TECHNIQUE: 2D and 3D bilateral screening mammography was performed with CAD. FINDINGS: Scattered fibroglandular densities are identified bilaterally. The parenchymal pattern is stable. No mass or malignant-appearing microcalcifications are seen. The axillae are unremarkable. IMPRESSION: No mammographic features suspicious for malignancy are identified. ACR BI-RADS Category 1: Negative. Result letter will be mailed to the patient. Note: At least 10% of breast cancer is not imaged by mammography. Dictated by: Dictated on workstation # [id number]
== END ==
LOC: RAD 15:30
PROVIDERS: ATTEND Nurse Practitioner Family
DX: Z12.31 Encounter for screening mammogram for malignant neoplasm of breast (principal)
CPT/HCPCS: 77063; 77067

== ENCOUNTER → 2022-09-22 | Outpatient (CLI) | payer BC ==
--- NOTE | 2022-09-22 17:12 | Diagnostic Imaging Report ---
INDICATION: Chronic back pain. COMPARISON: None FINDINGS: Frontal and lateral views of the lumbar spine were obtained. Alignment and vertebral heights are maintained. There is no fracture or destructive process. Mild multilevel degenerative disease is noted in the lumbar spine. Limited views of the abdomen demonstrate nonobstructive bowel gas pattern. IMPRESSION: 1. No acute fracture or dislocation of the lumbar spine. 2. Mild multilevel degenerative changes. Dictated by: Dictated on workstation # [id number]
--- NOTE | 2022-09-22 18:13 | Diagnostic Imaging Report ---
CLINICAL INDICATION: Patient with chronic pain. No known injury. EXAM: X-ray pelvis AP view and x-ray of both hips, AP and crosstable lateral view. COMPARISON: CT scan of the abdomen and pelvis dated 11/18/2017. FINDINGS: There is no acute fracture or dislocation. There is mild enthesopathy involving the bilateral greater trochanter regions. There are degenerative spurs involving the symphysis pubis region. Sacroiliac joints show no significant abnormality. There our lower lumbar spine degenerative spurs. 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 Dictated by: Dictated on workstation # [id number]
== END ==
LOC: RAD 14:27
PROVIDERS: ATTEND Family Medicine
DX: M16.0 Bilateral primary osteoarthritis of hip (principal); M47.816 Spondylosis without myelopathy or radiculopathy, lumbar region; E78.1 Pure hyperglyceridemia
CPT/HCPCS: 72100; 73521

== ENCOUNTER → 2022-09-27 | Outpatient (CLI) | payer BC ==
--- NOTE | 2022-09-27 14:05 | Diagnostic Imaging Report ---
INDICATION: Postmenopausal screening COMPARISON: 03/17/2020 FINDINGS: AP Spine L1-L4: [BMD (g/cm2): 1.090] [T-Score: -0.9] [Z-Score: -0.8] [BMD Previous: 1.126] [BMD % Change: -3.2*] LT Hip Neck: [BMD (g/cm2): 0.908] [T-Score: -0.9] [Z-Score: -0.4] LT Hip Total: [BMD (g/cm2):0.965] [T-Score:-0.3] [Z-Score: -0.2] [BMD Previous: 0.935] [BMD % Change: 3.2] RT Hip Neck: [BMD (g/cm2):0.852] [T-Score:-1.3] [Z-Score:-0.8] RT Hip Total: [BMD (g/cm2):0.979] [T-score:-0.2] [Z-Score:-0.1] [BMD Previous:0.986] [BMD % Change:-0.7] *Indicates significant change from prior examination based on 95% confidence level. World Health Organization criteria for BMD interpretation classify patients as Normal (T-score at or above -1.0), Osteopenic (T-score between -1.0 and -2.5) or Osteoporotic (T-score at or below -2.5). LIMITATIONS AND MODIFICATION: None. FRACTURE RISK (FRAX SCORE): The ten year probability of (%): Major Osteoporotic Fracture: [7.1] Hip Fracture: [0.5] IMPRESSION: 1. Osteopenia (Low bone mass). 2. Bone mineral density has decreased by a statistically significant amount, as detailed above. 3. See below National Osteoporosis Foundation guidelines on when to potentially initiate pharmacologic therapy. Based on the National Osteoporosis Foundation Guidelines, pharmacologic treatment should be initiated in any of the following, unless clinical conditions suggest otherwise: * Any patient with prior fragility fracture of the hip or vertebrae. A spine fracture indicates 5X risk for subsequent spine fracture and 2X risk for subsequent hip fracture. * Osteoporosis (T-score <-2.5). * Postmenopausal women and men age 50 and older with low bone mass/osteopenia (T-score between -1.0 and -2.5) by DXA and 10-year major osteoporotic fracture greater than 20% or a 10-year probability of hip fracture greater than 3%. These fracture risks are supplied above in the FRAX score, if applicable. * Clinician judgement and/or patient preferences may indicate treatment for people with 10-year fracture probabilities above or below these levels. Dictated by: Dictated on workstation # [id number]
== END ==
LOC: RAD 12:53
PROVIDERS: ATTEND Obstetrics & Gynecology
DX: M85.89 Other specified disorders of bone density and structure, multiple sites (principal)
CPT/HCPCS: 77080

== ENCOUNTER → 2022-12-21 | Outpatient (CLI) | payer BC ==
--- NOTE | 2022-12-22 17:29 | Diagnostic Imaging Report ---
3-D bilateral screening mammogram with CAD. This study was compared to the prior exams of 12/17/2021, 11/10/2020 and 10/17/2019. At this time, there are no current complaints. The breasts are predominantly fatty. When compared to the prior study there has been no significant change. There is no primary or secondary sign of malignancy noted. Impression: There is no evidence for malignancy. ACR BI-RADS Category 1: Negative. Result letter will be mailed to the patient. Note: At least 10% of breast cancer is not imaged by mammography. Dictated by: Dictated on workstation # [id number]
== END ==
LOC: RAD 14:43
PROVIDERS: ATTEND Family Medicine
DX: Z12.31 Encounter for screening mammogram for malignant neoplasm of breast (principal)
CPT/HCPCS: 77063; 77067